=== PATIENT | male | born 1960 | race Caucasian/White ===

== ENCOUNTER → 2023-11-06 13:11 | Outpatient (REF) | payer OTHER, SELFPAY | LOC: HWRAD 13:11 | PROVIDERS: ATTENDING PHYSICIAN Family Medicine | DX: R31.0 Gross hematuria (principal) | CPT/HCPCS: 76770 ==

== ENCOUNTER → 2023-11-14 15:55 | Outpatient (REF) | payer OTHER, SELFPAY | LOC: HWRAD 15:55 | PROVIDERS: ATTENDING PHYSICIAN Urology; FAMILY PHYSICIAN Family Medicine | DX: N20.0 Calculus of kidney (principal); N13.30 Unspecified hydronephrosis | CPT/HCPCS: 74176 ==

== ENCOUNTER → 2023-11-25 15:31 | Outpatient (REF) | payer OTHER, SELFPAY | LOC: HWRAD 15:31 | PROVIDERS: ATTENDING PHYSICIAN Urology; FAMILY PHYSICIAN Family Medicine | DX: N20.1 Calculus of ureter (principal) | CPT/HCPCS: 74018 ==

== ENCOUNTER → 2024-01-01 07:27 | Outpatient (REF) | payer OTHER, SELFPAY | LOC: HWRAD 07:27 | PROVIDERS: ATTENDING PHYSICIAN Urology; FAMILY PHYSICIAN Family Medicine | DX: N20.1 Calculus of ureter (principal) | CPT/HCPCS: 74176 ==

== ENCOUNTER 2024-03-19 06:15 | Day surgery (SDC) | payer OTHER, SELFPAY ==
[2024-03-16 06:48] VITALS: BMI 43.4
[2024-03-16 09:55] LABS: Hemoglobin 12.1 g/dL (13.0-18.0); Mean Corpuscular Hgb 19.7 pg (27.0-31.0); Mean Corpuscular Volume 63.4 fL (80.0-94.0); Platelet Count 165 10^3/uL (130-400); Red Blood Cell Count 6.15 10^6/uL (4.70-6.10); Red Cell Dist. Width 15.9 % (11.5-14.5); White Blood Cell Count 5.7 10^3/uL (4.8-10.8)
[2024-03-16 10:24] LABS: Blood Urea Nitrogen 26 mg/dl (9-20); Calcium 8.7 mg/dl (8.4-10.2); Carbon Dioxide 26 mmol/L (22-30); Chloride 106 mmol/L (98-107); Estimated Creatinine Clearance 64 ml/min; Glucose 119 mg/dl (70-99); Potassium 4.8 mmol/L (3.5-5.1); Sodium 142 mmol/L (135-145); eGFR 47.52
--- NOTE | 2024-03-17 14:58 | PTCARENOTE ---
Abn Creatinine, Dr. Mcnally office notified.
[2024-03-19] VITALS (10 sets, daily range): BP systolic 127–178; BP diastolic 67–97; BMI 43.4
[2024-03-19] MEDS: TYLENOL 1000 MG PO (10:10)
[2024-03-19 10:25] LABS: Glucose - Point of Care 123 mg/dl (70-99)
[2024-03-19] MEDS: NORMOSOL-R 1000 IV (10:26)
--- NOTE | 2024-03-19 11:09 | HP.FOC2 ---
Focused History & Physical
Chief Complaint
HPI:
Chief Complaint: Abnormal imaging of the appendix, suspected mucocele
HPI / Indication for Planned Procedure: Patient is a 63-year-old male who underwent CT imaging in December which identified an incidental fluid-filled dilated appendix up to 1.6 cm with small calcifications. Proximal and mid appendix appear normal in
diameter and configuration. Base of the cecum and terminal ileum unremarkable. These were new changes compared to previous CT imaging in 2019. Previous colonoscopy 2020 normal. He has no associated GI symptoms. Patient presents today for
scheduled appendectomy.
Relevant Past Medical History: Other (HARITHA with CPAP utilization, hypertension, GERD, history of colon polyps, type 2 diabetes, aortic stenosis)
Relevant Social History: Negative
Relevant Family History: Negative
Relevant Past Surgical History: Positive for (Right hip replacement, left knee replacement)
Review of Systems
Review of Pertinent Systems: All Systems Negative
Medication
See Medication form for detailed medications: Yes
Medication List (including Herbals & OTC):
pantoprazole 40 mg tablet,delayed release 40 mg PO BID Gastrointestinal issue 09/23/20
potassium citrate 15 mEq (1,620 mg) tablet,extended release (Urocit-K 15) 15 meq PO BID Supplement 09/23/20
aspirin 81 mg tablet,delayed release 81 mg PO DAILY #30 tabs 09/28/20
metformin 500 mg tablet 500 mg PO BID 03/17/24
metoprolol succinate 25 mg tablet,extended release 24 hr 12.5 mg PO DAILY 03/17/24
nifedipine 30 mg tablet,extended release 24 hr 30 mg PO DAILY 03/17/24
tamsulosin 0.4 mg capsule 0.4 mg PO DAILY 03/17/24
Medications Reviewed: Yes
Allergies and Reactions
Patient has Allergies: No
Noted Allergies and Reactions:
Allergy/AdvReac Type Severity Reaction Status Date / Time
No Known Allergies Allergy Verified 03/19/24 09:41
Pertinent Physical Exam
All Other Systems: Negative
Head/Neck: Normal
Lungs: Normal
Heart: Normal
Abdomen: Normal and Other
Extremities: Normal
Neurological: Normal
Diagnosis / Assessment
63-year-old male presenting for scheduled appendectomy due to abnormal imaging in the appendix and suspected possible mucocele
Plan / Procedure
Laparoscopic appendectomy
Anesthesia/Sedation to be done by Anesthesia Provider: Yes
--- NOTE | 2024-03-19 11:23 | W.SUR.PREOP ---
Pre-Operative Surgical Note
-
I have examined this patient prior to the performance of the scheduled procedure.
The patient's condition is unchanged from the time of the current History and
Physical and the patient is able to undergo the scheduled procedure.
--- NOTE | 2024-03-19 13:02 | W.IMMPOSTOP ---
Addendum entered and electronically signed by Say Mcnally MD 03/19/24 14:43:
#[id number]
Original Note:
Surgical Immed Post Op Note
-
Primary Surgeon: Uli
Assisting Surgeon: Jonathan Hinkle
Pre-op Diagnosis: Abnormal imaging of the appendix
Post-op Diagnosis: Appendiceal mass, suspected mucocele
Procedure Performed: Laparoscopic appendectomy
Anesthesia Type: GETA +0.25% Marcaine
Specimen / Cultures: Appendix
Estimated Blood Loss: 4 mL
Complications: None immediate
Operative Findings: Focal area of distended/dilated appendix in the distal to mid third. No serosal abnormalities. No regional lymphadenopathy appreciated. Proximal appendix and base of the appendix normal. Appendectomy completed without
disruption of the appendix and divided flush with the cecum utilizing a Endo GLADIS 45 franklin stapler.
[2024-03-19 13:19] LABS: Glucose - Point of Care 137 mg/dl (70-99)
== END 2024-03-19 15:01 | disposition home or self-care (01) ==
LOC: SDS 06:15
PROVIDERS: ATTENDING PHYSICIAN Surgery; FAMILY PHYSICIAN Family Medicine
DX: D37.3 Neoplasm of uncertain behavior of appendix (principal); R93.5 Abnormal findings on diagnostic imaging of other abdominal regions, including retroperitoneum
CPT/HCPCS: 44970; 88304; 36415; 80048; 82962; 85027; J1335

== ENCOUNTER 2024-04-09 11:01 | Day surgery (SDC) | payer OTHER, SELFPAY ==
[2024-04-09] VITALS (17 sets, daily range): BP systolic 127–194; BP diastolic 67–116; BMI 44.4
[2024-04-09 11:47] LABS: Glucose - Point of Care 110 mg/dl (70-99)
[2024-04-09] MEDS: LOW STRENGTH ASPIRIN 81 MG PO (11:48)
[2024-04-09] MEDS: NSS 403 ML IV (11:49)
[2024-04-09 15:18] LABS: ACT-LR - POC 210 Seconds (116-155)
--- NOTE | 2024-04-09 15:21 | ITS.CL.CATH ---
Intake Specialist - Catheterization
Cardiac Catheterization
Procedure Report:
CARDIAC CATHETERIZATION REPORT
Date of Procedure: 04/09/2024
Referring: Pineda Lopez DO
Indication: Severe aortic stenosis
�
HEMODYNAMIC DATA
AO: 166/90
LV: 215/20
There is a 46 mmHg gradient across the aortic valve
�
LEFT VENTRICULOGRAPHY: Not performed due to CKD with creatinine 1.6
�
CORONARY ANGIOGRAPHY
Dominance: Right
Left Main: Normal
LAD: Normal
Circumflex: Normal
RCA: Normal
Right lower extremity angiography: The right iliofemoral vessels are large and free of atherosclerotic disease
�
Closure Device: None-manual compression was used to obtain hemostasis in the right femoral artery as he may ultimately be a TAVR patient. Of note, the right radial artery was easily accessed; however, due to the origin of the innominate artery
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
�
Radiation (mGy): 512
DAP (cm2.Gy): 53.4
Fluoroscopy time: 11.9 minutes
�
CONCLUSIONS
1:�Systemic hypertension
2:�Severe aortic stenosis with mean gradient 46 mmHg
3. He will be evaluated for SAVR vs TAVR
�
�
Copy to: Pineda Lopez DO, Roxie Sung,, Yasir NATARAJAN MD
�
Wisam Sánchez MD, [facility], [facility]
[2024-04-09 16:14] LABS: Glucose - Point of Care 93 mg/dl (70-99)
--- NOTE | 2024-04-09 16:53 | CONSULT.STRU ---
Consultation
-
Date/Time Consultation Requested: 04/09/2024
Date/Time Consultation Performed: 04/09/2024
Requesting Provider: Dr. Wisam Sánchez
Performing Provider: MANUEL Teran
Reason for Consultation: Aortic stenosis
Patient History
Physicians
Family Physician: Pineda Faustin
Outpatient Glass Maker: Pineda Lopez
Primary Glass Maker: Pineda Lopez
History of Present Illness
Patient is a 63yo obese male referred to Dr. Sánchez by Dr. Pineda Lopez for evaluation of his aortic stenosis. While preparing for a knee replacement the patient had lost a significant amount of weight and a cardiac murmur was first heard. He
has successfully undergone a left TKR and most recently an appendectomy since then. He does not report any symptoms of KERNS, SOB at rest, CP, palpitations, dizziness or syncope. He does have fatigue but states this is chronic and also admits to some
mild KERNS when walking uphill but relatively unchanged from what he has always experienced. His echocardiogram is notable for LVEF of 65%, Aortic valve with PG/M.2/54.4, KYLE 1.0, mild AI. Mitral valve with mild stenosis MG 6 and mild MR. Cardiac
cath today with no obstructive coronary disease.
Reviewed the pathophysiology of aortic stenosis with the patient and his . Explained the treatment options of SAVR and TAVR. Explained the TAVR evaluation process including follow up BMP, CT TAVR scan, CT surgery consult and Heart Team
discussion. Provided with script for BMP next week, script and appointment for CT TAVR, Consult appointment with Dr. Petersen and contact information. Allowed for and answered questions.
Past Medical History
Past Medical History: Covid-19, GERD, HTN, Hypercholesterolemia, NIDDM, HARITHA (CPAP), Renal Insufficiency, Valvular Disease (Severe , mild AI, Mild mitral stenosis, mild MR, trace TR ) and Other (Colon polyps, mild ascending aorta dilation)
Past Surgical History
Past Surgical History: Appendectomy (Appendiceal mass, suspected mucocele.) and Orthopedic (R-THR, L-TKR)
Dental History
Regular dental care: Dr. Barry Bhakta ([facility])
Family History
Mother: at Age (72yo, HTN)
Father: at Age (82yo)
Social History
Alcohol: Occasional
Drug: None
Tobacco: Non-Smoker
Personal:
Living: With Spouse
Employment: Employed ([employer])
Allergies
Allergy/AdvReac Type Severity Reaction Status Date / Time
lisinopril Allergy Unknown Pharmacy Verified 04/09/24 11:54
to Review
Home Medications
�Medication �Instructions �Recorded �Confirmed �Type
pantoprazole 40 mg tablet,delayed 40 mg PO DAILY Gastrointestinal 09/23/20 04/09/24 History
release issue
potassium citrate 15 mEq (1,620 15 meq PO BID Supplement 09/23/20 04/09/24 History
mg) tablet,extended release
(Urocit-K 15)
aspirin 81 mg tablet,delayed 81 mg PO DAILY #30 tabs 09/28/20 04/09/24 Rx
release
metformin 500 mg tablet 1,000 mg PO BID 03/17/24 04/09/24 History
metoprolol succinate 25 mg 12.5 mg PO DAILY 03/17/24 04/09/24 History
tablet,extended release 24 hr
nifedipine 30 mg tablet,extended 30 mg PO DAILY 03/17/24 04/09/24 History
release 24 hr
tamsulosin 0.4 mg capsule 0.4 mg PO DAILY 03/17/24 04/09/24 History
acetaminophen 500 mg tablet 1,000 mg (2 x 500 mg) PO Q6HPRN 03/19/24 04/09/24 Rx
(Tylenol Extra Strength) PRN mild pain #1 tab
oxycodone 5 mg tablet 5 mg PO Q4HPRN PRN 03/19/24 04/09/24 Rx
breakthrough/severe pain #7 tabs
STS%
STS %: 1.81%
Review of Systems
-
History Source: Patient and Family
General: Reports Fatigue
HEENT: Reports No Symptoms
Respiratory: Reports Other (HARITHA- CPAP)
Cardiac: Reports Edema (chronic jennifer LE); Denies Chest Pain, Known Vascular Disease or Palpitations
Abdomen/GI: Reports Reflux; Denies Nausea or Vomiting
: Reports No Symptoms; Denies Dysuria, Urgency or Frequency
Musculoskeletal: Reports Joint Pain (DJD, history of TKR, THR)
Skin: Reports No Symptoms
Neurological: Reports No Symptoms; Denies CVA, TIA, Headaches or Syncope
Vascular: Reports No Symptoms
Physical Exam
Vital Signs
Temp 98.9 F 04/09/24 11:16
Temp route: Oral 04/09/24 11:07
Pulse 74 04/09/24 16:30
Resp Rate 16 04/09/24 16:30
Blood pressure 164/90 04/09/24 16:30
Blood pressure extremity used: Left upper arm 04/09/24 16:25
Position: Lying 04/09/24 16:25
MAP (cuff-Lissy Monitor) 104 04/09/24 16:30
SaO2 98 04/09/24 16:15
Oxygen Mode of Delivery Room air 04/09/24 16:25
Can the patient verbally communicate their pain? Yes 04/09/24 16:25
Actual Weight 134.263 kg 04/09/24 10:14
Body Mass Index (BMI) 44.4 04/09/24 10:14
Labs
03/16/2024
H/H: 12.1/39.0
WBC: 57
Platelets: [id number]
BUN/Creat: 26/1.6
GFR: 47.52
Diagnostic Studies
Cardiac Catheterization 04/09/2024
HEMODYNAMIC DATA
AO: 166/90
LV: 215/20
There is a 46 mmHg gradient across the aortic valve
�
LEFT VENTRICULOGRAPHY: Not performed due to CKD with creatinine 1.6
�
CORONARY ANGIOGRAPHY
Dominance: Right
Left Main: Normal
LAD: Normal
Circumflex: Normal
RCA: Normal
Right lower extremity angiography: The right iliofemoral vessels are large and free of atherosclerotic disease
�
Closure Device: None-manual compression was used to obtain hemostasis in the right femoral artery as he may ultimately be a TAVR patient. Of note, the right radial artery was easily accessed; however, due to the origin of the innominate artery
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
�
Radiation (mGy): 512
DAP (cm2.Gy): 53.4
Fluoroscopy time: 11.9 minutes
�
CONCLUSIONS
1:�Systemic hypertension
2:�Severe aortic stenosis with mean gradient 46 mmHg
3. He will be evaluated for SAVR vs TAVR
�
�Echocardiogram ([facility])
LVEF 65%
Mitral Valve: MAC, mild stenosis PG/M/6, mild MR
Aortic Valve: trileaflet, severe stenosis, mild AI. PG/M.2/54.4, KYLE 1.0, Peak velocity 4.9m/sec
Pulmonic Valve: mild regurgitation
Tricuspid Valve: Trace TR
Exam
General: Well Developed, No Apparent Distress and Other (obese)
HEENT: Normocephalic, Moist Mucous Membranes and PERRLA
Neck: Trachea Midline
Respiratory: Clear; Negative Wheezes, Crackles or Rhonchi
Cardiac: S1/S2, Regular Rhythm and Murmur (Grade II/ systolic murmur)
GI: Soft, Non Tender and Normal Bowel Sounds
Rectal: Deferred by Provider
Skin: Warm and Dry
Neuro: AO x 3, No Motor Deficits and Nonfocal/Grossly Intact
Extremities: Lower Level Edema (+1 pitting bilateral LE)
Psych: Calm
Assessment / Plan
-
Procedure Type:�Isolated AVR
PERIOPERATIVE OUTCOME ESTIMATE %
Operative Mortality 1.81%
Morbidity & Mortality 11.6%
Stroke 0.719%
Renal Failure 3.5%
Reoperation 3.25%
Prolonged Ventilation 4.79%
Deep Sternal Wound Infection 0.1%
Long Hospital Stay (>14 days) 4.96%
Short Hospital Stay (<6 days)* 45%
Severe Aortic stenosis:
��������������� Continue evaluation for TAVR vs SAVR as an outpatient
��������������� BMP 04/15/2024 at [facility]
��������������� CT TAVR scan chest only 04/21/2024 0930
��������������� CT surgery consult with Dr. Petersen 05/04/2024
��������������� Heart team discussion at [facility]
Dental Clearance
Data Reviewed
-
EKG: Report Reviewed by me
Wastewater Process Engineer: Report Reviewed by me and Discussed with Physician
Echo: Report Reviewed by me and Discussed with Patient
Labs: Labs Reviewed by me
Old Records: Reviewed (Cardiology office notes)
Total Time Spent with Patient (in minutes): 35
[2024-04-09] MEDS: NSS 1000 IV (17:25)
== END 2024-04-09 19:45 | disposition home or self-care (01) ==
LOC: CATH 11:01
PROVIDERS: ATTENDING PHYSICIAN Internal Medicine Cardiovascular Disease; FAMILY PHYSICIAN Family Medicine; OTHER PHYSICIAN Internal Medicine Cardiovascular Disease
DX: I35.0 Nonrheumatic aortic (valve) stenosis (principal); I12.9 Hypertensive chronic kidney disease with stage 1 through stage 4 chronic kidney disease, or unspecified chronic kidney disease; E11.22 Type 2 diabetes mellitus with diabetic chronic kidney disease; N18.9 Chronic kidney disease, unspecified; E66.9 Obesity, unspecified; E78.00 Pure hypercholesterolemia, unspecified; G47.33 Obstructive sleep apnea (adult) (pediatric); K21.9 Gastro-esophageal reflux disease without esophagitis; I37.1 Nonrheumatic pulmonary valve insufficiency; Z79.84 Long term (current) use of oral hypoglycemic drugs; Z68.41 Body mass index [BMI] 40.0-44.9, adult; Z86.16 Personal history of COVID-19; Z82.49 Family history of ischemic heart disease and other diseases of the circulatory system; Z87.19 Personal history of other diseases of the digestive system; Z88.8 Allergy status to other drugs, medicaments and biological substances; Z90.49 Acquired absence of other specified parts of digestive tract; Z96.659 Presence of unspecified artificial knee joint
CPT/HCPCS: 82962; 85347; 93458; C1894

== ENCOUNTER → 2024-04-21 09:55 | Outpatient (REF) | payer OTHER, SELFPAY | LOC: RAD 09:55 | PROVIDERS: ATTENDING PHYSICIAN Nurse Practitioner Adult Health | DX: I35.0 Nonrheumatic aortic (valve) stenosis (principal) | CPT/HCPCS: 75572; Q9967 ==

== ENCOUNTER 2024-04-21 10:20 | Outpatient (RCR) | payer OTHER, SELFPAY ==
[2024-04-21 10:35] VITALS: BP 133/84
[2024-04-21] MEDS: NSS 500 IV (10:52)
== END 2024-05-08 23:59 | disposition home or self-care (01) ==
LOC: OID 10:20
PROVIDERS: ATTENDING PHYSICIAN Nurse Practitioner Adult Health; FAMILY PHYSICIAN Family Medicine
DX: I35.0 Nonrheumatic aortic (valve) stenosis (principal)
CPT/HCPCS: 96360; 96361

== ENCOUNTER 2024-05-24 05:12 | Inpatient (IN) | payer OTHER, SELFPAY ==
[2024-05-13 12:48] VITALS: BMI 44.4
[2024-05-13 13:17] LABS: INR 1.04; PT 13.6 Sec (11.4-14.6)
[2024-05-13 13:18] LABS: APTT 31.4 Sec (23.4-35.0)
[2024-05-13 13:21] LABS: ALT (SGPT) 13 U/L (0-50); AST (SGOT) 18 U/L (17-59); Albumin 4.3 g/dl (3.5-5.0); Alkaline Phosphatase 89 U/L (38-126); Blood Urea Nitrogen 28 mg/dl (9-20); Calcium 8.9 mg/dl (8.4-10.2); Carbon Dioxide 23 mmol/L (22-30); Chloride 105 mmol/L (98-107); Direct Bilirubin 0.3 mg/dl (0.0-0.4); Estimated Creatinine Clearance 72 ml/min; Glucose 106 mg/dl (70-99); Potassium 4.3 mmol/L (3.5-5.1); Sodium 141 mmol/L (135-145); Total Bilirubin 0.9 mg/dl (0.2-1.3); eGFR 55.78
[2024-05-13 13:41] LABS: % Basophils 0.6 % (0-2); % Eosinophils 4.5 % (0-6); % Immature Granulocytes 0.5 % (0-0.5); % Lymphocytes 18.1 % (20.5-51.1); % Monocytes 8.6 % (1.7-9.3); % Neutrophils 67.7 % (42.2-75.2); Absolute Eosinophils 0.3 10^3/uL (0-0.7); Absolute Lymphocytes 1.1 10^3/uL (1.2-3.4); Absolute Monocytes 0.5 10^3/uL (0.1-0.6); Absolute Neutrophils 4.2 10^3/uL (1.4-6.5); Hematocrit 41.9 % (39.0-52.0); Hemoglobin 12.7 g/dL (13.0-18.0); Mean Corp Hgb Conc. 30.3 g/dL (33.0-37.0); Mean Corpuscular Hgb 19.4 pg (27.0-31.0); Mean Corpuscular Volume 63.9 fL (80.0-94.0); Nucleated Red Blood Cells % 0 % (-); Platelet Count 159 10^3/uL (130-400); Red Blood Cell Count 6.56 10^6/uL (4.70-6.10); Red Cell Dist. Width 16.1 % (11.5-14.5); White Blood Cell Count 6.2 10^3/uL (4.8-10.8)
[2024-05-13 14:19] LABS: Urine Albumin Negative (Neg - Trace); Urine Bilirubin Negative (Negative); Urine Character Clear (Clear); Urine Color Yellow; Urine Glucose Negative (Negative); Urine Ketone Negative (Negative); Urine Leukocyte Trace (Negative); Urine Nitrite Negative (Negative); Urine Occult Blood 1+ (Negative); Urine Urobilinogen Negative (Neg - 1+)
--- NOTE | 2024-05-13 14:20 | CM ---
Reviewed chart. Met with Mr. Nobles in [facility]'s. He states prior to admission he resides with his spouse in a two story home with two steps to enter. He states he has a first floor set-up, his main suite is on the first floor. He states prior to
admission he was independent with ambulation and adls. He states he has a CPAP Machine at home and no other DME. He states he has a prescription plan. He states his spouse will be one one to two days when he goes home to assist in his care if
needed. The discharge plan is to return home with his spouse and a home visit by the Cardiothoracic Transitional Care Nurse when medically stable.
We reviewed pre-op and post-op routines. We reviewed the shower instructions. He has the soap, written instructions and the Cardiothoracic Surgery Educational Booklet. We also reviewed restrictions including sternal precautions and driving
restrictions. We discussed a home visit by the Cardiothoracic Transitional Care Nurse. He is agreeable to a home visit. The plan is for AVR on Friday, May 24, 2024.
[2024-05-13 14:55] LABS: Urine Red Blood Cell 0-2 /HPF (0-2); Urine White Cell 0-2 /HPF (0-5)
[2024-05-14 09:28] LABS: Glycohemoglobin (HgbA1c) 6.3 % (4.0-5.6)
--- NOTE | 2024-05-23 23:28 | W.PN.CT ---
Assessment / Plan
-
Assessment:
-S/P #27 Inspiris Resilia valve placed & secured w/ 15 interrupted, pledgetted valve sutures & CorKnots/AV annulus debrided circumferentially including debridement of aortomitral curtain/ventricular surface of anterior MV leaflet, by Nicola,
05/24/24, pod#1
-Severe
-Mild asc. aorta dilatation (4.2 cm)
-KERNS
-LVEF 60% preop, 65% postop per intraop MARYANN
-Mild AI/MR
-Moderate posterior MAC
-Severe dilated left atrium
-Mild scattered sessile atheroma seen in the descending aorta and distal arch
-HTN
-T2DM (A1C 6.3)
-Class 3 obesity (BMI 44.3)
-HARITHA (uses CPAP)
-GERD/hiatal hernia
-DJD
-Mild right scoliosis
-Renal calculi
-Recent TEVIN, 05/13/24
-BPH (on Flomax)
-Colon polyps
-Appendiceal mass/mucocele S/P Lap Appendectomy (03/19/24)
-S/p L TKA (2022)
-S/P R hip replacement (2021)
-S/p Tonsillectomy
-Acute postop blood loss/Anemia (stable without blood transfusion)
-Acute postop atelectasis
-Acute postop hypovolemia with subsequent hypervolemia
Plan:
-No major issues overnight. Hemodynamically and neurologically intact
-Successfully extubated on 05/24/24 @ 1640
-Weaned of Levophed gtt, remains on insulin gtt per protocol
-Last CI 2.98, U/O since OR
-Monitor chest tube output: 2 meds
-Cont. current meds (ASA, Amiodarone, Lopressor, Flomax)
-Will transition off insulin gtt tomorrow since pt is a diabetic
-Telemetry phase once of insulin gtt
-D/C'd swan yesterday @ 2144
-D/C'd a-line this AM @ 0500
-Keep amaya another day to avoid issues with acute urinary retention, pt had TEVIN preop has BPH and is on Flomax
-Maintain temporary PW (will cut before d/c home)
-Maintain cordis (will d/c on POD#3)
-Wean off of O2 as tolerated
-Encourage use of IS
-OOB into chair/Ambulate
Subjective
-
Date of Service: May 23, 2024
Objective Data
-
Lab Results
05/13/24 12:41
05/13/24 12:41
PT 13.6 Sec (11.4-14.6) 05/13/24 12:37
INR 1.04 05/13/24 12:37
APTT 31.4 Sec (23.4-35.0) 05/13/24 12:37
[2024-05-24] VITALS (21 sets, daily range): BP systolic 88–147; BP diastolic 55–88; BMI 43.4
[2024-05-24 06:40] LABS: Blood Urea Nitrogen 25 mg/dl (9-20); Calcium 8.4 mg/dl (8.4-10.2); Carbon Dioxide 24 mmol/L (22-30); Chloride 107 mmol/L (98-107); Estimated Creatinine Clearance 78 ml/min; Glucose 125 mg/dl (70-99); Magnesium 1.8 mg/dl (1.6-2.3); Potassium 3.9 mmol/L (3.5-5.1); Sodium 141 mmol/L (135-145); eGFR > 60.00
[2024-05-24] MEDS: BACTROBAN 2% OINTMENT 1 APPLIC NASAL ×2 (07:02→19:52)
[2024-05-24] MEDS: PROTONIX 40 MG PO (07:05)
[2024-05-24] MEDS: LOPRESSOR 25 MG PO (07:05)
[2024-05-24] MEDS: MAGNESIUM OXIDE 500 MG PO (07:06)
--- NOTE | 2024-05-24 07:16 | PTCARENOTE ---
Pt admitted to CVICU at 0530. Pt clipped and prepped, CHG bath done, all per CVOR protocol. Pre op meds given. Dr. Petersen in to see pt this am. Family at bedside. Pt to CVOR at ~ 0700.
--- NOTE | 2024-05-24 07:45 | W.CVOR.SURPR ---
CVOR Surgeon Immed Pre Op
-
I have examined this patient prior to performance of the scheduled procedure.
The patient's condition is unchanged from the time of the dictated/written History and
Physical and the patient is able to undergo the scheduled procedure.
[2024-05-24 08:15] LABS: Urine Albumin Negative (Neg - Trace); Urine Bilirubin Negative (Negative); Urine Character Clear (Clear); Urine Color Yellow; Urine Glucose Negative (Negative); Urine Ketone Negative (Negative); Urine Leukocyte Negative (Negative); Urine Nitrite Negative (Negative); Urine Occult Blood Negative (Negative); Urine Specific Gravity 1.015 (<1.030); Urine Urobilinogen Negative (Neg - 1+)
[2024-05-24 08:25] LABS: ACT+ - POC 93 Seconds (82-134)
[2024-05-24 09:40] LABS: ACT+ - POC 558 Seconds (82-134)
[2024-05-24 10:05] LABS: B.E. - POC 0.3 mmol/L; Glucose - POC 126 mg/dl (70-99); HCO3 - POC 25 mmol/L (21-29); Hematocrit - POC 33 % PCV (42-52); Hemodilution- POC No; Hemoglobin Calculated - POC 11.3; Ionized Calcium - POC 1.15 mmol/L (1.12-1.27); O2 Saturation %Calculated-POC 99.1 5 (92-96); PCO2 - POC 38 mmHg (35-45); PO2 - POC 136 mmHg (80-100); POC Comment PRE; Potassium - POC 3.9 mmol/L (3.6-5.0); Sodium - POC 142 mmol/L (135-145); pH - POC 7.42 (7.35-7.45)
[2024-05-24 10:13] LABS: ACT+ - POC 459 Seconds (82-134)
[2024-05-24 10:30] LABS: B.E. - POC 2.2 mmol/L; Glucose - POC 175 mg/dl (70-99); HCO3 - POC 27 mmol/L (21-29); Hematocrit - POC 27 % PCV (42-52); Hemodilution- POC Yes; Ionized Calcium - POC 0.98 mmol/L (1.12-1.27); O2 Saturation %Calculated-POC 99.9 5 (92-96); PCO2 - POC 44 mmHg (35-45); PO2 - POC 359 mmHg (80-100); POC Comment CPB; Potassium - POC 5.2 mmol/L (3.6-5.0); Sodium - POC 138 mmol/L (135-145)
[2024-05-24 10:39] LABS: ACT+ - POC 473 Seconds (82-134)
[2024-05-24 11:00] LABS: ACT+ - POC 555 Seconds (82-134)
[2024-05-24 11:02] LABS: B.E. - POC 1.5 mmol/L; Glucose - POC 185 mg/dl (70-99); HCO3 - POC 26 mmol/L (21-29); Hematocrit - POC 28 % PCV (42-52); Hemodilution- POC Yes; Hemoglobin Calculated - POC 9.6; Ionized Calcium - POC 0.99 mmol/L (1.12-1.27); O2 Saturation %Calculated-POC 99.9 5 (92-96); PCO2 - POC 42 mmHg (35-45); PO2 - POC 254 mmHg (80-100); POC Comment CPB; Potassium - POC 4.6 mmol/L (3.6-5.0); Sodium - POC 139 mmol/L (135-145); pH - POC 7.41 (7.35-7.45)
[2024-05-24 11:29] LABS: ACT+ - POC 530 Seconds (82-134)
[2024-05-24 11:32] LABS: B.E. - POC 0.9 mmol/L; Glucose - POC 194 mg/dl (70-99); HCO3 - POC 25 mmol/L (21-29); Hematocrit - POC 32 % PCV (42-52); Hemodilution- POC Yes; Hemoglobin Calculated - POC 10.8; Ionized Calcium - POC 1.02 mmol/L (1.12-1.27); O2 Saturation %Calculated-POC 99.8 5 (92-96); PCO2 - POC 36 mmHg (35-45); PO2 - POC 220 mmHg (80-100); POC Comment CPB; Potassium - POC 4.4 mmol/L (3.6-5.0); Sodium - POC 140 mmol/L (135-145); pH - POC 7.45 (7.35-7.45)
--- NOTE | 2024-05-24 11:38 | CM ---
Chart reviewed. Patient is in the OR today. Patient is independent of ADLS, lives with his in a 2 STH, 1st floor set up, 2 ATBBY, 0 DME. Plan is for the patient to return home with CT Transitional RN. CM to follow
[2024-05-24 12:10] LABS: B.E. - POC 0.4 mmol/L; Glucose - POC 222 mg/dl (70-99); HCO3 - POC 26 mmol/L (21-29); Hematocrit - POC 33 % PCV (42-52); Hemodilution- POC Yes; Hemoglobin Calculated - POC 11.1; Ionized Calcium - POC 1.01 mmol/L (1.12-1.27); O2 Saturation %Calculated-POC 99.8 5 (92-96); PCO2 - POC 44 mmHg (35-45); PO2 - POC 233 mmHg (80-100); POC Comment WARM; Potassium - POC 4.6 mmol/L (3.6-5.0); Sodium - POC 141 mmol/L (135-145); pH - POC 7.38 (7.35-7.45)
[2024-05-24 12:18] LABS: ACT+ - POC 96 Seconds (82-134)
[2024-05-24 12:21] LABS: Glucose - POC 151 mg/dl (70-99); HCO3 - POC 22 mmol/L (21-29); Hematocrit - POC 33 % PCV (42-52); Hemodilution- POC Yes; Hemoglobin Calculated - POC 11.1; Ionized Calcium - POC 1.16 mmol/L (1.12-1.27); O2 Saturation %Calculated-POC 97.8 5 (92-96); PCO2 - POC 39 mmHg (35-45); PO2 - POC 104 mmHg (80-100); POC Comment POST; Potassium - POC 3.6 mmol/L (3.6-5.0); Sodium - POC 144 mmol/L (135-145); pH - POC 7.37 (7.35-7.45)
--- NOTE | 2024-05-24 12:40 | W.PN.CD ---
Addendum entered and electronically signed by Jake Etienne MD 05/24/24 17:38:
63 yo male with PMH severe , HTN, DM, hyperlipidemia admitted following bio-AVR today. He has been extubated. He is weaning from sedation and drips. Exam with RRR, no murmurs, trace edema. Tele and EKG: NSR.
Post op care per CT surgery.
Assess to resume home BP meds as he recovers from OR.
Original Note:
Today's Communication / Plan
-
Follow telemetry
Impression / Plan
-
BACKGROUND: 63M with HTN, NIDDM, HARITHA, and severe aortic stenosis who presents for SAVR
Third Hand: Dr. Lopez
Severe aortic stenosis S/P #[address] Petersen on 05/24/2024
-Pre LVEF 60% without WMA, unchanged post
-MARYANN 18/9mmHg post without AI
-EKG low voltage with prolonged QT, EKG in am
-Education regarding antibiotic prophylaxis for dental and invasive procedures when he is awake
HTN
NIDDM, Hgba1c 6.3%, per primary
HARITHA
Obesity, BMI 43
SUBJECTIVE:
Intubated and sedated on mechanical ventilation
Physical Exam
Vital Signs/Labs
Vital Signs
Temp Pulse Resp BP Pulse Ox
98.8 F 79 16 147/77 97
05/24/24 05:34 05/24/24 05:34 05/24/24 05:34 05/24/24 05:36 05/24/24 05:34
05/23/24 05/24/24 05/25/24
06:59 06:59 06:59
Actual Weight 133.1 kg
PT 13.6 Sec (11.4-14.6) 05/13/24 12:37
INR 1.04 05/13/24 12:37
APTT 31.4 Sec (23.4-35.0) 05/13/24 12:37
Magnesium 1.8 mg/dl (1.6-2.3) 05/24/24 06:04
Physical Exam
Constitutional: No acute distress and Comfortable
EENT: Anicteric and Moist mucous membranes
Cardiovascular: Rhythm & rate is regular, S1S2 is normal and Rub present
Respiratory: Lungs clear to auscul. (diminished) and Other (mechanical ventilation)
GI: Soft, Distention absent, Flat, Non tender and Normal bowel sounds
Neuro/Psych: Other (sedated)
Other: Skin (warm and dry)
Data Reviewed
-
Date of Service: May 24, 2024
EKG: Report Reviewed by me
Labs: Labs Reviewed by me
Old Records: Reviewed
--- NOTE | 2024-05-24 12:54 | W.IMMPOSTOP ---
Addendum entered and electronically signed by Yasir Petersen MD 05/24/24 15:47:
[id number]
Original Note:
Surgical Immed Post Op Note
-
CARDIAC SURGERY OPERATIVE NOTE:
Preoperative Dx:
Severe aortic stenosis
Postoperative Dx:
Same
Procedures:
1) Median sternotomy
2) AVR (#27 Inspiris Resilia)
Surgeon:
Yasir Petersen M.D.
Assistants:
Radha Abraham P.A.-C.; processing assistant throughout
Morena Muñoz P.A.-C.; [id number] closure
Anesthesia:
Cornelius Faust M.D.
Perfusion:
Marcello Carlisle C.C.P.; XC: 95min, CPB: 126min
Findings:
Profoundly calcified trileaflet aortic valve w/ dense leaflet calcifications extending to the annulus circumferentially. Leaflet calcifications were most pronounced on the NCC. Annular calcifications were most pronounced along the LCC w/ with a
wide bar of calcifications extending onto the aortomitral curtain and down the anterior leaflet of the MV. Progressing towards to LCC/RCC commissure; there was another wide bar of annular calcifications congruent with MAC.
AV annulus debrided circumferentially including debridement of aortomitral curtain/ventricular surface of anterior MV leaflet.
#27 Inspiris Resilia valve placed & secured w/ 15 interrupted, pledgetted valve sutures & CorKnots
Post-MARYANN: LVEF 65% w/o RWMA, well-seated AVR w/o PVL/AI, mean gradient 8mmHg (LVOT), mild MR (unchanged)
Implants:
Inspiris Resilia AVR; 27mm; SN [id number]
Epicardial V-wires x 2
CT x 2 (inferior mediastinal; superior mediastinal)
Sternal wires x 7
Sternal 'X' plate w/ 4 - 16mm and 4 - 18mm screws
Sternal 'Square' plate w/ 4 - 14mm screws
Complications:
None
Transfusions:
None
Condition:
109 sinus w/ slightly widened QRS, isoelectric STs; 94/53. 35/23. CVP 16. CO/CI: 5/2.34. 98%
GTTS: precedex 0.5, insulin 1, levophed 2 (just restarted)
Stable/guarded to CVICU
--- NOTE | 2024-05-24 13:32 | CON.INTV ---
Consultation
Consultation Request
Date/Time Consultation Requested: 05/24/2024-1:30 PM
Date/Time Consultation Performed: 05/24/2024-1:30 PM
Requesting Provider: Cardiovascular surgery
Performing Provider: Dr. Adam
Reason for Consultation: Postop ventilator/critical care management
Medical History
-
Chief Complaint: Aortic stenosis
History of Present Illness:
63-year-old male with a history of obesity, diabetes, hypertension, HARITHA, nephrolithiasis, and CAD who was noted to have significant aortic stenosis and underwent AVR-well point pumping supervisor consulted for postoperative ventilator/critical care management
05/24/2024. Patient is seen postoperatively in the cardiovascular intensive care unit and he is sedated on a ventilator and review of systems was unobtainable. Operative records were reviewed. No blood products were needed. Overall uneventful.
No blood products. Pressors and inotropes reviewed.
Past Medical History
Past Medical History: None (Hypertension. Hyperlipidemia. CAD-nonobstructive. Obesity. HARITHA. Diabetes. GERD. Colon polyp. Chronic pain. Nephrolithiasis. Renal insufficiency. 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
Right THR 2021. Left TKA 2022. Tonsillectomy.)
Social History
Tobacco: Non-smoker
Alcohol: Occasional
Drug: None
Personal:
Living: With Family
Occupational Exposures: No known asbestos exposure
Environmental Exposures: No known tuberculosis exposure
Family History
Family History: Other (Father-hypertension, hyperlipidemia. Mother-hypertension. Maternal aunt-colon cancer. Sister-breast cancer. Son-diabetes)
Allergies / Home Medications
Allergies
Allergy/AdvReac Type Severity Reaction Status Date / Time
lisinopril Allergy Unknown Pharmacy Verified 05/24/24 02:40
to Review
Home Medications
�Medication �Instructions �Recorded �Confirmed �Last Taken �Type
pantoprazole 40 mg tablet,delayed 40 mg PO DAILY Gastrointestinal 09/23/20 05/24/24 05/23/24 21:30 History
release issue
potassium citrate 15 mEq (1,620 15 meq PO BID Supplement 09/23/20 05/24/24 05/23/24 17:30 History
mg) tablet,extended release
(Urocit-K 15)
aspirin 81 mg tablet,delayed 81 mg PO DAILY #30 tabs 09/28/20 05/24/24 05/23/24 21:30 Rx
release
metformin 500 mg tablet 500 mg PO BID 03/17/24 05/24/24 05/23/24 17:30 History
metoprolol succinate 25 mg 12.5 mg PO DAILY 03/17/24 05/24/24 05/22/24 21:30 History
tablet,extended release 24 hr
nifedipine 30 mg tablet,extended 30 mg PO DAILY 03/17/24 05/24/24 05/21/24 06:30 History
release 24 hr
tamsulosin 0.4 mg capsule 0.4 mg PO DAILY 03/17/24 05/24/24 05/23/24 17:30 History
acetaminophen 500 mg tablet 1,000 mg (2 x 500 mg) PO Q6HPRN 03/19/24 05/24/24 Unknown Rx
(Tylenol Extra Strength) PRN mild pain #1 tab
oxycodone 5 mg tablet 5 mg PO Q4HPRN PRN 03/19/24 05/24/24 Unknown Rx
breakthrough/severe pain #7 tabs
Review of Systems
-
Unable to Obtain full review of systems at this time due to: Other (Per HPI)
Vitals / Labs / Diagnostic Testing
Vital Signs
Temp Pulse Resp BP Pulse Ox
98.8 F 79 16 147/77 97
05/24/24 05:34 05/24/24 05:34 05/24/24 05:34 05/24/24 05:36 05/24/24 05:34
Diagnostic Testing:
Physical Exam
-
Exam:
Well-nourished and well-developed in no apparent distress
HEENT-atraumatic, normocephalic, oral tracheal intubation
Heart-regular rate and rhythm-no murmurs, rubs or gallops
Chest-clear to auscultation, no wheezes, crackles, median sternotomy bandage is not removed
Abdomen soft nondistended
Extremities-no cyanosis, clubbing, edema and good peripheral pulses
Integument-intact, no rashes, lesions or ecchymosis
Neurologically not alert, not oriented, not moving any of his extremities sedated on a ventilator
Assessment
-
63-year-old male with a history of obesity, diabetes, hypertension, HARITHA, nephrolithiasis, and CAD who was noted to have significant aortic stenosis and underwent AVR-well point pumping supervisor consulted for postoperative ventilator/critical care management
05/24/2024.
Aortic stenosis status post AVR-05/24/2024-Dr. Petersen
Mild anemia-hemoglobin 12.2-ijjucmjowt-NAA 63.9
Mild hyperglycemia
Conditions present prior to admission:
Hypertension.
Hyperlipidemia.
CAD-nonobstructive.
Obesity.
HARITHA-moderate to eeircr-LEI-26.1
Diabetes.
GERD.
Colon polyp.
Chronic pain.
Nephrolithiasis.
Renal insufficiency.
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
Right THR 2021. Left TKA 2022. Tonsillectomy.
Plan
Ventilator settings reviewed
FiO2 will be weaned
Minute ventilation will be adjusted
Arterial blood gases will be monitored
Spontaneous breathing trial will be attempted with hopeful extubation after anesthesia/sedation wear off
Pulmonary artery catheter parameters will be followed
Pressors/antihypertensive/inotropes/diuretics will be provided as needed
Monitor chest tube output
Monitor hemoglobin
Monitor platelet count and coags
Transfuse blood product if needed
CT surgery following chest tubes
Monitor blood sugar
Insulin drip per protocol
Aspiration precautions
VAP prevention protocol
DVT prophylaxis
Early nutrition
Early mobilization
Last seen by Dr. Alberts 12/15/20-we will recommend outpatient sleep disorders follow-up for yearly CPAP compliance/adjustments as needed
Critical care statement: A total of 46 minutes of critical care time was provided for this patient today. This includes management of ventilator, spontaneous breathing trial, arterial blood gases, pressors, of unstable vital signs, evaluation of the
patient at bedside, reviewing the patient's pertinent medical records including radiographs, microbiology, laboratory evaluations, and discussion with primary team and critical care nursing.
Diagnostic data:
Chest x-ray 12/08/2020-improved bibasilar opacifications
Chest x-ray 05/24/2024-mild pulmonary edema, partial obscuration of left hemidiaphragm may represent left lower lobe pneumonia versus small left pleural effusion
PFT/05/29-FEV1 3.06-90%, FVC 4.07-90%, TLC 83%, RV 69%, DLCO 96%, DLCO/VA 113%
Spirometry 05/13/2024-FEV1 2.8-86%, FVC 3.9-92%
HST 11/09/2020-BEVERLY-28.1
Data Reviewed
-
PFT: Report reviewed by me
EKG: Report reviewed by me
Radiology: Image personally visualized and interpreted and Report reviewed by me
Medical Tests (Nuc Med, Echo etc): Report reviewed by me
Labs: Labs reviewed by me
Old Records: Reviewed
Critical Care Time (in minutes): 46
[2024-05-24 13:40] LABS: Glucose - Point of Care 137 mg/dl (70-99)
[2024-05-24 13:49] LABS: B.E. -1.6 mmol/L; HCO3 24.3 mmol/L (21-28); Ionized Calcium 1.13 mMOL/L (1.15-1.33); PCO2 45 mmHg (35-48); PO2 148 mmHg (83-108); Potassium 4.3 mMOL/L (3.5-5.1); Sodium 137 mMOL/L (136-145); pH 7.34 (7.35-7.45)
[2024-05-24 13:53] LABS: Mixed Venous O2 Saturation 74.1 %
[2024-05-24 13:56] LABS: Hematocrit 31.5 % (39.0-52.0); Hemoglobin 9.8 g/dL (13.0-18.0); Platelet Count 138 10^3/uL (130-400)
[2024-05-24 14:01] LABS: Blood Urea Nitrogen 23 mg/dl (9-20); Estimated Creatinine Clearance 71 ml/min; Glucose 132 mg/dl (70-99); Magnesium 2.7 mg/dl (1.6-2.3)
[2024-05-24 14:06] LABS: APTT 31.6 Sec (23.4-35.0); PT 16.9 Sec (11.4-14.6)
--- NOTE | 2024-05-24 14:07 | W.PN.UPDATE ---
Update Note
Progress Note Update
63-year-old male presents electively on 05/[address] a S[address]R with Dr. Petersen.
IV fluids: 2000
U.O.:� 750
UF:� 3650
Blood:� None
Wires:� V
Inotropes: none�
Pressors:� none
Sedatives:� precedex
�
NEURO: sedated on precedex, pupils +2mm B/L
RESP: #8OT @24cm> 12/500/100/5 Lungs clear B/L. 2 mediastinal (25cc on arrival with +1 AL) chest tubes to -20cm suction. Sanguineous drainage
CV: RRR +S1, S2, no S3, no�rub, no murmur. Dermabond to median sternotomy. RIJ w/[place] locked @ 49cm. PA 46/33; CVP 20; CI 2.1
ABD: round, soft, no BS
EXT: no edema, +2/4 DP pulses B/L, no femoral bruit, Left radial
: Garcia with clear yellow urine
�
A/P: POD #0 s/p #27 inspirus SAVR
MARYANN: EF�65%
- wean and extubate; likey to bipap
- will need instruction regarding antibiotic prophylaxis for dental and invasive procedures
- Monitor CT and urine output
- Follow up labs and CXR
- Will start ASA tonight
- EKG pending and will send to cards
- Cards consulted
�
# acute surgical blood loss anemia-expected
- trend CBC
�
# T2DM (A1C 6.3)
- insulin infusion x 48h
- resume metformin
�
[2024-05-24] MEDS: DILAUDID 0.5 MG IV ×2 (14:10→22:29)
[2024-05-24 14:14] LABS: Glucose - Point of Care 156 mg/dl (70-99)
[2024-05-24] MEDS: TYLENOL PO (14:14)
[2024-05-24] MEDS: NSS 500 IV (14:14)
[2024-05-24] MEDS: NOVOLOG FLEXPEN SC ×2 (14:14→16:25)
[2024-05-24] MEDS: ANCEF 15 MG IV (14:15)
[2024-05-24] MEDS: ANCEF 10 IV (14:15)
[2024-05-24] MEDS: NEURONTIN PO ×2 (14:15→16:18)
--- NOTE | 2024-05-24 14:19 | PTCARENOTE ---
Pt received from [facility] at 1330; Sedated and intubated; NSR rhythm on monitor; VSS; Epicardial V-wire preesent with pacemaker turned off; DP and radial pulses present; Lungs diminished; ETT size 8 positioned and secured at 24 cm center lip; Ventilator
settings SIMV 500/12/5/7 FiO2 60%; CTx2 to -20 cm wall suction draining bloody drainage and has +1 air leak - no tidaling, or crepitus noted; Hypoactive BS; Garcia catheter in place draining clear, yellow urine; Sternal Midline Incision covered with
aquacell dressing with scant amount of drainage; +1 B/L LE Edema present; A-line in left radial artery, [place] floated to 47 cm in right Cordis - all lines zeroed and level; PIVx1 #18 R Hand; Levo/insulin/precedex/nicardipine infusing - see nursing
flowsheets for further details; PRN IV Dilaudid given accordingly for pain; iCal repleted x1; See nursing documentation for further details.
CO: 5.81
CI: 2.39
SVR: 881
[2024-05-24] MEDS: DILAUDID 0.25 MG IV (14:31)
[2024-05-24] MEDS: CALCIUM CHLORIDE 10% SYRINGE 50 ML IV (14:35)
[2024-05-24] MEDS: CALCIUM CHLORIDE 10% SYRINGE 50 MG IV (14:35)
--- NOTE | 2024-05-24 14:38 | PTCARENOTE ---
Pt placed on CPAP trial at 1400 by BIANKA Nova Pt trying to extubate himself and given PRN IV Dilaudid accordingly. ABG's sent at 1430
[2024-05-24 14:40] LABS: B.E. -2.2 mmol/L; HCO3 22.4 mmol/L (21-28); O2 Saturation % 97.2 % (94-98); PCO2 37 mmHg (35-48); PO2 76 mmHg (83-108); pH 7.39 (7.35-7.45)
[2024-05-24 15:00] LABS: Glucose - Point of Care 156 mg/dl (70-99)
--- NOTE | 2024-05-24 15:39 | PTCARENOTE ---
Patientt extubated at 1520 by RT at bedside; Placed on 6L O2 NC - SpO2 86-91%; Patient then additionally placed on patient's own CPAP from home with home preset settings - SpO2 93-94%.
[2024-05-24 16:04] LABS: Glucose - Point of Care 120 mg/dl (70-99)
[2024-05-24] MEDS: ZOFRAN 4 MG IV (16:09)
[2024-05-24] MEDS: PACERONE PO (16:18)
--- NOTE | 2024-05-24 16:31 | PTCARENOTE ---
Pt with episode of nausea at 1608 - PRN IV Zofran given; Pt now resting comfortably in bed
[2024-05-24 17:03] LABS: Glucose - Point of Care 138 mg/dl (70-99)
[2024-05-24] MEDS: LOW STRENGTH ASPIRIN 81 MG PO (17:28)
[2024-05-24 17:32] LABS: Platelet Count 145 10^3/uL (130-400)
[2024-05-24 18:00] LABS: Glucose - Point of Care 137 mg/dl (70-99)
[2024-05-24] MEDS: SENOKOT-S 1 TABLET PO (19:51)
[2024-05-24] MEDS: ANCEF 5 IV (19:51)
[2024-05-24 20:05] LABS: Glucose - Point of Care 137 mg/dl (70-99)
[2024-05-24] MEDS: CALCIUM CHLORIDE 10% SYRINGE 60 MG IV (20:31)
[2024-05-24 22:23] LABS: Glucose - Point of Care 121 mg/dl (70-99)
[2024-05-24] MEDS: NEURONTIN 100 MG PO (22:29)
[2024-05-24] MEDS: TYLENOL 1000 MG PO (22:29)
[2024-05-24] MEDS: PACERONE 200 MG PO (22:29)
--- NOTE | 2024-05-24 22:51 | PTCARENOTE ---
[place]-Adolfo catheter removed at 2200 as per [facility] Ed orders; Cordis with KVO infusing - dressing changed; iCal repleted ordered and given prior to [place]-Adolfo catheter removal. PRN IV Dilaudid given accordingly for 7-8/10 pressure pain near sternal
incision.
[2024-05-24 23:02] LABS: Glucose - Point of Care 141 mg/dl (70-99)
--- NOTE | 2024-05-24 23:27 | PTCARENOTE ---
Patient received from previous shift resting in bed, AAO X 3, states pain relief from recent medication. at bedside. NSR via cm, SaO2 @ 91% on RA, 2lnc applied w/SaO2 @ 95%. RIJ Cordis w/kvo infusing. L radial arterial line - leveled, flushed,
and calibrated w/good waveform returned. Epicardial V-wire to box, off. Mediastinal chest tubes x 2, Y-connected, to -20cm suction, no air leak noted. Garcia catheter to gravity. All procedural sites stable. Patient and spouse updated to plan of care
for the night, in agreement. See work list for full assessment and interventions performed.
[2024-05-25] VITALS (27 sets, daily range): BP systolic 84–134; BP diastolic 48–72; PULSE 82; O2SAT 95–99; BMI 43.0
[2024-05-25 00:08] LABS: Glucose - Point of Care 128 mg/dl (70-99)
[2024-05-25] MEDS: FLEXERIL 5 MG PO ×2 (00:08→09:58)
[2024-05-25 01:06] LABS: Glucose - Point of Care 115 mg/dl (70-99)
[2024-05-25 02:07] LABS: Glucose - Point of Care 109 mg/dl (70-99)
--- NOTE | 2024-05-25 03:23 | W.PN.CT ---
Addendum entered and electronically signed by Yasir Petersen MD 05/25/24 06:55:
I saw and examined the patient.
The PA's note was reviewed and I agree with the note.
Comment:
Doing well postop day #1 status post aortic valve replacement with #27 Inspiris
[place] DC'd at 2145 hrs., DC A-line
Maintain Amaya given preop TEVIN/BPH with a.m. creatinine of 1.7, closely follow urine output
Maintain chest tubes
Out of bed, I-S, ambulate later
Original Note:
Today's Communication / Plan
-
Plan:
-No major issues overnight. Hemodynamically and neurologically intact
-Successfully extubated on 05/24/24 @ 1640
-Weaned of Levophed gtt, remains on insulin gtt per protocol
-Postop EKG c/w acute pericarditis, will avoid NSAIDs given cr 1.7 and discuss renal dose Colchicine
-Last CI 2.98, U/O since OR
-Monitor chest tube output: 2 meds
-Cont. current meds (ASA, Amiodarone, Lopressor- hold AM dose given soft BP, Flomax)
-Will transition off insulin gtt tomorrow since pt is a diabetic
-Telemetry phase once of insulin gtt
-D/C'd swan yesterday @ 2145
-Will D/C a-line this AM @ 0600
-Keep amaya another day to avoid issues with acute urinary retention, pt had TEVIN preop has BPH and is on Flomax. Cr this AM is 1.7
-Holding mag oxide given mg of 2.4 today
-Will replete ca++
-Maintain temporary PW (will cut before d/c home)
-Maintain cordis (will d/c on POD#3)
-Wean off of O2 as tolerated
-Encourage use of IS
-OOB into chair/Ambulate
Assessment / Plan
-
Assessment:
-S/P #27 Inspiris Resilia valve placed & secured w/ 15 interrupted, pledgetted valve sutures & CorKnots/AV annulus debrided circumferentially including debridement of aortomitral curtain/ventricular surface of anterior MV leaflet, by Nicola,
05/24/24, pod#1
-Severe
-Mild asc. aorta dilatation (4.2 cm)
-KERNS
-LVEF 60% preop, 65% postop per intraop MARYANN
-Mild AI/MR
-Moderate posterior MAC
-Severe dilated left atrium
-Mild scattered sessile atheroma seen in the descending aorta and distal arch
-HTN
-T2DM (A1C 6.3)
-Class 3 obesity (BMI 44.3)
-HARITHA (uses CPAP)
-GERD/hiatal hernia
-DJD
-Mild right scoliosis
-Renal calculi
-Recent TEVIN, 05/13/24
-BPH (on Flomax)
-Colon polyps
-Appendiceal mass/mucocele S/P Lap Appendectomy (03/19/24)
-S/p L TKA (2022)
-S/P R hip replacement (2021)
-S/p Tonsillectomy
-Acute postop blood loss/Anemia (stable without blood transfusion)
-Acute postop atelectasis
-Acute postop hypovolemia with subsequent hypervolemia
-Postop TEVIN
-Acute postop pericarditis on EKG (+rub)
Discussed patient care with: Cardiology, Nursing, Respiratory Therapy, Pharmacy and Care Team
Subjective
Procedure
S/P #27 Inspiris Resilia valve placed & secured w/ 15 interrupted, pledgetted valve sutures & CorKnots/AV annulus debrided circumferentially including debridement of aortomitral curtain/ventricular surface of anterior MV leaflet, by Nicola, 05/24/24
-
Date of Service: May 25, 2024
Pt c/o incisional pain, otherwise feels well
Objective Data
-
PT 16.9 Sec (11.4-14.6) H 05/24/24 13:28
INR 1.40 05/24/24 13:28
APTT 31.6 Sec (23.4-35.0) 05/24/24 13:28
Vital Signs
Vital Signs
Temp Pulse Resp BP Pulse Ox
99.3 F 75 20 104/56 95
05/25/24 03:00 05/25/24 03:00 05/25/24 03:00 05/25/24 03:00 05/25/24 03:00
CT Intake/Output/Weight
05/24/24 05/24/24 05/25/24
06:59 18:59 06:59
Intake Total 447.5 / 814.5 367.0 / 814.5
Output Total 690 / 1145 455 / 1145
Balance -242.5 / -330.5 -88.0 / -330.5
SaO2: 95 (2L)
Physical Exam
-
General: Awake, Oriented and AOx3
Cardiovascular: Regular rate & rhythm, No Murmurs, No Rub and No Gallop
Respiratory: Decreased Breath Sounds (at bases, otherwise clear)
Sternum: Stable
Incision: Clean, Dry, Intact and Dressing Intact
Extremities: Other (+trace edema)
Data Reviewed
-
Lab Results: Results Reviewed
Medications: Active Meds Reviewed
Chest X-Ray: Report Reviewed and Image Reviewed
ECG: Report Reviewed and Image Reviewed
--- NOTE | 2024-05-25 04:00 | PTCARENOTE ---
Hourly rounds completed. Patient medicated for pain. Labs collected. remains at bedside.
[2024-05-25 04:03] LABS: Glucose - Point of Care 101 mg/dl (70-99)
[2024-05-25] MEDS: ROXICODONE 5 MG PO ×3 (04:08→13:09)
[2024-05-25] MEDS: ANCEF 5 IV ×2 (04:08→13:09)
[2024-05-25 04:12] LABS: Ionized Calcium 1.15 mMOL/L (1.15-1.33)
[2024-05-25 04:15] LABS: Hematocrit 29.4 % (39.0-52.0); Hemoglobin 9.3 g/dL (13.0-18.0); Mean Corp Hgb Conc. 31.6 g/dL (33.0-37.0); Mean Corpuscular Hgb 19.5 pg (27.0-31.0); Mean Corpuscular Volume 61.8 fL (80.0-94.0); Platelet Count 160 10^3/uL (130-400); Red Blood Cell Count 4.76 10^6/uL (4.70-6.10); Red Cell Dist. Width 15.2 % (11.5-14.5); White Blood Cell Count 11.3 10^3/uL (4.8-10.8)
[2024-05-25 04:42] LABS: Blood Urea Nitrogen 29 mg/dl (9-20); Calcium 8.6 mg/dl (8.4-10.2); Carbon Dioxide 22 mmol/L (22-30); Chloride 109 mmol/L (98-107); Estimated Creatinine Clearance 59 ml/min; Glucose 99 mg/dl (70-99); Magnesium 2.4 mg/dl (1.6-2.3); Potassium 4.3 mmol/L (3.5-5.1); Sodium 140 mmol/L (135-145); eGFR 44.18
[2024-05-25] MEDS: CALCIUM CHLORIDE 10% SYRINGE 60 MG IV (05:17)
[2024-05-25 06:00] LABS: Glucose - Point of Care 113 mg/dl (70-99)
[2024-05-25] MEDS: DILAUDID 0.5 MG IV (06:05)
[2024-05-25] MEDS: TYLENOL 1000 MG PO ×3 (06:05→21:11)
--- NOTE | 2024-05-25 07:38 | W.PN.INTV ---
Today's Communication / Plan
Recommendations
Increase activity
Wean FiO2
CPAP at night
Monitor chest tube output
Insulin drip continues
Assessment
-
63-year-old male with a history of obesity, diabetes, hypertension, HARITHA, nephrolithiasis, and CAD who was noted to have significant aortic stenosis and underwent AVR-precision machine operator consulted for postoperative ventilator/critical care management
05/24/2024.
Aortic stenosis status post AVR-05/24/2024-Dr. Petersen
Mild anemia-hemoglobin 12.6-kxfcqiipip-LQM 63.9
Mild hyperglycemia
Conditions present prior to admission:
Hypertension.
Hyperlipidemia.
CAD-nonobstructive.
Obesity.
HARITHA-moderate to bcybdn-RBG-41.1
Diabetes.
GERD.
Colon polyp.
Chronic pain.
Nephrolithiasis.
Renal insufficiency.
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
Right THR 2021. Left TKA 2022. Tonsillectomy.
Plan
Tolerated extubation
Wean FiO2
Encourage incentive spirometry
Increase activity
Aspiration precautions
Nebulizers if needed-currently not bronchospastic
DTUU-zsu-drkrufdsh at night
Pulmonary artery catheter and arterial line will be removed
Pressors have been weaned
Continue to monitor chest tube output
Follow hemoglobin
Continue to follow platelet count and coags
Transfuse blood product as needed
CT surgery following chest tubes as well
Follow blood sugar
Insulin supplementation continues as needed
Early nutrition
Early mobilization
DVT prophylaxis
Reviewed with at the bedside
Last seen by Dr. Alberts 12/15/20-we will recommend outpatient sleep disorders follow-up for yearly CPAP compliance/adjustments as needed
Reviewed the patient's pertinent medical records including radiographs, microbiology, laboratory evaluations, and discussion with primary team, and critical care nursing.
Diagnostic data:
Chest x-ray 12/08/2020-improved bibasilar opacifications
Chest x-ray 05/24/2024-mild pulmonary edema, partial obscuration of left hemidiaphragm may represent left lower lobe pneumonia versus small left pleural effusion
PFT/05/29-FEV1 3.06-90%, FVC 4.07-90%, TLC 83%, RV 69%, DLCO 96%, DLCO/VA 113%
Spirometry 05/13/2024-FEV1 2.8-86%, FVC 3.9-92%
HST 11/09/2020-BEVERLY-28.1
Subjective Dataa
Subjective Data
Date of Service:
Date of Service: May 25, 2024
Chief Complaint: Quantitative Manager Follow Up and Pulmonary Follow Up
Subjective:
Tolerated extubation, no complaints of shortness of breath, pain controlled, no chest congestion, abdominal pain, or increased leg swelling
Review of Systems
General: Other (Per HPI)
Objective Data
Data Reviewed
Vital Signs / I&O / Oxygen:
Vital Signs
Temp Pulse Resp BP Pulse Ox
99.7 F 77 17 113/55 92
05/25/24 06:00 05/25/24 07:00 05/25/24 07:00 05/25/24 07:00 05/25/24 07:00
Intake and Output
05/24/24 05/25/24 05/26/24
06:59 06:59 06:59
Intake Total 1104.6 / 1118.1 ..5
Output Total 1320 / 1320
Balance -215.4 / -201.9 13.5 / 13.5
SaO2 [CPAP] 94
SaO2 [SIMV] 95
SaO2 92
Nasal Cannula flow liters per 2
minute
Physical Exam
General: Respiratory Distress (n) and Comfortable
HEENT: Normocephalic, Anicteric and Moist Mucous Membranes
Cardiovascular: Regular Rhythm and Murmur (n)
Respiratory: Wheeze (n), Crackles (Rare basilar), Rhonchi (n), Non-Labored Respirations, Accessory Resp Muscle Use (n), Stridor and Chest Tube
GI: Soft, Non Distended and Non Tender
Neurology: Awake, Alert and No Motor Deficits
Skin: Warm, Good Color, Cyanosis (n), Jaundice (n) and Rash (n)
Labs/Micro/Reports
Lab Data
05/25/24 03:57
05/25/24 03:57
Laboratory Results
05/24/24 05/24/24
13:28 14:33
PT 16.9 H
INR 1.40
APTT 31.6
pH 7.34 L 7.39
pCO2 45 37
pO2 148 H 76 L
HCO3 24.3 22.4
O2 Delivery Level
[2024-05-25 07:58] LABS: Glucose - Point of Care 111 mg/dl (70-99)
--- NOTE | 2024-05-25 07:59 | W.PN.CD ---
Today's Communication / Plan
-
Cont post-op care
OOB and ISB
agree wtih renal dose colchicine with ECG concerning for pericarditis
Impression / Plan
-
BACKGROUND: 63M with HTN, NIDDM, HARITHA, and severe aortic stenosis who presents for SAVR
Bottom Precipitator Operator: Dr. Lopez
Severe aortic stenosis S/P #[address] Petersen on 05/24/2024
-Pre LVEF 60% without WMA, unchanged post
-MARYANN 18/9mmHg post without AI
-EKG low voltage with prolonged QT, EKG in am
-Education regarding antibiotic prophylaxis for dental and invasive procedures when he is awake
New ECG concerning for acute pericarditis
- given kidney function 1.7 agree with renal dosed colchicine
HTN
NIDDM, Hgba1c 6.3%, per primary
HARITHA
Obesity, BMI 43
SUBJECTIVE:
Feeling OK, main complaint is pain from sitting on his bottom
Physical Exam
Vital Signs/Labs
Vital Signs
Temp Pulse Resp BP Pulse Ox
99.5 F 77 18 113/55 94
05/25/24 07:55 05/25/24 07:00 05/25/24 07:55 05/25/24 07:00 05/25/24 07:55
05/24/24 05/25/24 05/26/24
06:59 06:59 06:59
Actual Weight 293 lb 6.964 oz 291 lb 3.69 oz
05/25/24 03:57
05/25/24 03:57
PT 16.9 Sec (11.4-14.6) H 05/24/24 13:28
INR 1.40 05/24/24 13:28
APTT 31.6 Sec (23.4-35.0) 05/24/24 13:28
Magnesium 2.4 mg/dl (1.6-2.3) H 05/25/24 03:57
Physical Exam
Constitutional: No acute distress
EENT: Anicteric
Cardiovascular: Rhythm & rate is regular, Pedal edema is absent and Systolic murmur present (soft)
Respiratory: Respiratory effort normal and Lungs clear to auscul.
GI: Soft
Neuro/Psych: AO x 3
Data Reviewed
-
Date of Service: May 25, 2024
EKG: Tracing Personally Visualized and interpreted (sr)
Echo: Report Reviewed by me
Labs: Labs Reviewed by me
--- NOTE | 2024-05-25 08:00 | PTCARENOTE ---
pt received from previous RN, oriented, OOB in chair. SR on the monitor, HR 70s. +rub. V wire in place, pacer box off. SBP 90-110s. palpable pulses, trace generalized edema. pt on 2LNC, 91-94% POX. IS encouraged. CT x2 connected to wall suction, no
crepitus noted. pt abdomen round, s/n, denies n/v. tolerating clears. Garcia in place, clear yellow urine. sternal dressing c/d/i. chest tube site c/d/i. RIJ cordis maintained. PIV. insulin gtt running as ordered. see worklist for VS, I&O, and
assessment.
--- NOTE | 2024-05-25 08:04 | W.PN.ANS.POP ---
Anesthesia Post Operative
- Anesthesia Post Op Note
Vital Signs Stable-See Nursing Note: Yes
Airway Patent: Yes
Adequate Pain Control: Yes
Change in Mental Status: No
Current Postoperative Nausea & Vomiting: No
Anesthesia Complications: No
General Anesthetic Recall: No
Unplanned Admission: No
Post Op Hydration Adequate: Yes
- -
Selected Entries
05/25/24
07:55 05/25/24
08:00 05/25/24
08:00
Temp 99.5 F
Pulse 76
Rhythm: Normal sinus
rhythm
Resp Rate 20
Blood pressure 114/56
MAP (cuff-Lissy Monitor) 72
SaO2 95
Nasal Cannula flow liters per minute 2
[2024-05-25] MEDS: NOVOLOG FLEXPEN SC (08:22)
[2024-05-25] MEDS: LIDOCAINE 4% PATCH 1 PATCH TOPICAL (08:28)
[2024-05-25] MEDS: PROTONIX 40 MG PO (08:28)
[2024-05-25] MEDS: NEURONTIN 100 MG PO ×3 (08:28→21:10)
[2024-05-25] MEDS: SENOKOT-S 1 TABLET PO ×2 (08:28→20:00)
[2024-05-25] MEDS: FLOMAX 0.4 MG PO (08:28)
[2024-05-25] MEDS: LOW STRENGTH ASPIRIN 81 MG PO (08:28)
[2024-05-25] MEDS: PACERONE 200 MG PO ×4 (08:28→21:11)
[2024-05-25] MEDS: NOVOLIN R INSULIN INFUSION 100 IV (08:29)
[2024-05-25] MEDS: BACTROBAN 2% OINTMENT 1 APPLIC NASAL ×2 (08:29→20:00)
[2024-05-25] MEDS: COLCHICINE 0.3 MG PO (09:58)
[2024-05-25 10:03] LABS: Glucose - Point of Care 124 mg/dl (70-99)
--- NOTE | 2024-05-25 10:55 | CM ---
Chart reviewed. Patient is independent of ADLS, lives with his in a 2STH, 1st floor set up, 2 TABBY, 0 DME. Plan is for the patient to return home. CM to follow
[2024-05-25] MEDS: NOVOLOG FLEXPEN 4 UNITS SC ×2 (11:37→17:55)
[2024-05-25 12:13] LABS: Glucose - Point of Care 133 mg/dl (70-99)
--- NOTE | 2024-05-25 12:20 | PTCARENOTE ---
pt VSS, no changes in assessment. IS encouraged. pt placed back to bed x2 assist. at bedside.
[2024-05-25] MEDS: NSS IV (12:21)
[2024-05-25 14:17] LABS: Glucose - Point of Care 140 mg/dl (70-99)
[2024-05-25 15:25] LABS: Glucose - Point of Care 101 mg/dl (70-99)
--- NOTE | 2024-05-25 16:15 | PTCARENOTE ---
pt VSS, no changes in assessment. OOB to chair x2 assist. insulin gtt running as ordered.
[2024-05-25 16:27] LABS: Glucose - Point of Care 89 mg/dl (70-99)
[2024-05-25] MEDS: LOPRESSOR 12.5 MG PO ×2 (16:55→21:10)
[2024-05-25] MEDS: ROXICODONE 2.5 MG PO (17:55)
[2024-05-25 17:59] LABS: Glucose - Point of Care 84 mg/dl (70-99)
[2024-05-25 19:07] LABS: Glucose - Point of Care 163 mg/dl (70-99)
[2024-05-25 21:04] LABS: Glucose - Point of Care 199 mg/dl (70-99)
--- NOTE | 2024-05-25 21:46 | PTCARENOTE ---
Assumed pt care. Walking rounds completed with previous RN. Pt OOB in chair at time of assessment. AAO x 4, reports intermittent sternal pain with inspiration - see MAR. Pt on 2L NC - POX 96%, coarse BS in L posterior base, diminished in R base. IS
& CDB encouraged, non-productive cough. CT x 2 present & patent - no air leak/crepitus, site care provided. Pt on NSR on monitor, heart tones normal, distal pulses +1, trace LE edema present. Temporary epicardial v-wire present - off. Pt assisted
into bed with assist x 2, tolerated activity well. BS hypoactive, denies n/v, reports good appetite. Insulin gtt con't per protocol - pt consumed muffin without insulin SSI coverage - education provided. Garcia catheter maintained, care provided, UO
~ 75 mL/hr. Procedural sites intact. RIJ Cordis maintained with KVO. PIV x 1 present & patent. Pt brushed teeth & washed face. CHG cloth bath performed. See MAR.
[2024-05-25 22:18] LABS: Glucose - Point of Care 115 mg/dl (70-99)
--- NOTE | 2024-05-25 23:00 | PTCARENOTE ---
report received from previous RN, walking rounds done, assumed care of pt. pt in bed, sleeping. insulin gtt infusing per glycemic protocol. VSS. NSR on monitor, HR 70s. epicardial wires intact and off. POX 94% on 2LNC. CT output and UO WNL. RIJ
cordis intact w KVO infusing. all surgical sites stable. pt's at bedside. see worklist for full assessment, VS, and interventions.
[2024-05-26] VITALS (17 sets, daily range): BP systolic 102–156; BP diastolic 52–75; PULSE 86; O2SAT 94–99; BMI 43.9
[2024-05-26 00:41] LABS: Glucose - Point of Care 71 mg/dl (70-99)
[2024-05-26 03:50] LABS: Glucose - Point of Care 119 mg/dl (70-99)
[2024-05-26] MEDS: ROXICODONE 5 MG PO (03:53)
[2024-05-26 04:18] LABS: Hematocrit 26.7 % (39.0-52.0); Hemoglobin 8.2 g/dL (13.0-18.0); Mean Corp Hgb Conc. 30.7 g/dL (33.0-37.0); Mean Corpuscular Hgb 19.1 pg (27.0-31.0); Mean Corpuscular Volume 62.1 fL (80.0-94.0); Platelet Count 123 10^3/uL (130-400); Red Cell Dist. Width 15.4 % (11.5-14.5); White Blood Cell Count 9.9 10^3/uL (4.8-10.8)
[2024-05-26 04:21] LABS: Blood Urea Nitrogen 32 mg/dl (9-20); Calcium 7.9 mg/dl (8.4-10.2); Carbon Dioxide 24 mmol/L (22-30); Chloride 105 mmol/L (98-107); Estimated Creatinine Clearance 52 ml/min; Glucose 110 mg/dl (70-99); Potassium 4.3 mmol/L (3.5-5.1); Sodium 139 mmol/L (135-145); eGFR 38.66
--- NOTE | 2024-05-26 04:50 | W.PN.CT ---
Addendum entered and electronically signed by Yasir Petersen MD 05/26/24 07:16:
I saw and examined the patient.
The PA's note was reviewed and I agree with the note.
Comment:
Postop day #2 status post AVR
Doing well overall. Minor TEVIN with creatinine of 1.9 (previously 1.7)
Maintain Amaya today to closely monitor urine output
DC chest tubes
Out of bed/I-S/ambulate
Original Note:
Today's Communication / Plan
-
Plan:
-No major issues overnight. Hemodynamically and neurologically intact
-Remains on insulin gtt per protocol, will transition off and transfer to tele phase when off today. Cannot resume Metformin given TEVIN
-Postop EKG c/w acute pericarditis, will avoid NSAIDs given cr 1.9. Currently on renal dose Colchicine, may need to d/c if cr continues to rise
-Consider d/c of chest tubes: 2 meds 100/225
-Cont. current meds (ASA, Amiodarone, Lopressor, Flomax)
-Keep amaya another day to avoid issues with acute urinary retention, pt had TEVIN preop has BPH and is on Flomax. Cr this AM is 1.9
-Holding mag oxide given mg of 2.4 today
-Maintain temporary PW (will cut before d/c home)
-Maintain cordis (will d/c on POD#3)
-Wean off of O2 as tolerated
-Encourage use of IS
-OOB into chair/Ambulate
-Home likely in 2 days
Assessment / Plan
-
Assessment:
-S/P #27 Inspiris Resilia valve placed & secured w/ 15 interrupted, pledgetted valve sutures & CorKnots/AV annulus debrided circumferentially including debridement of aortomitral curtain/ventricular surface of anterior MV leaflet, by Nicola,
05/24/24, pod#2
-Severe
-Mild asc. aorta dilatation (4.2 cm)
-KERNS
-LVEF 60% preop, 65% postop per intraop MARYANN
-Mild AI/MR
-Moderate posterior MAC
-Severe dilated left atrium
-Mild scattered sessile atheroma seen in the descending aorta and distal arch
-HTN
-T2DM (A1C 6.3)
-Class 3 obesity (BMI 44.3)
-HARITHA (uses CPAP)
-GERD/hiatal hernia
-DJD
-Mild right scoliosis
-Renal calculi
-Recent TEVIN, 05/13/24
-BPH (on Flomax)
-Colon polyps
-Appendiceal mass/mucocele S/P Lap Appendectomy (03/19/24)
-S/p L TKA (2022)
-S/P R hip replacement (2021)
-S/p Tonsillectomy
-Acute postop blood loss/Anemia (stable without blood transfusion)
-Acute postop atelectasis
-Acute postop hypovolemia with subsequent hypervolemia
-Postop TEVIN
-Acute postop pericarditis on EKG (+rub)
Discussed patient care with: Cardiology, Nursing, Respiratory Therapy, Pharmacy and Care Team
Subjective
Procedure
S/P #27 Inspiris Resilia valve placed & secured w/ 15 interrupted, pledgetted valve sutures & CorKnots/AV annulus debrided circumferentially including debridement of aortomitral curtain/ventricular surface of anterior MV leaflet, by Nicola, 05/24/24
-
Date of Service: May 26, 2024
Pt c/o mild incisional pain, otherwise feels well
Objective Data
-
Lab Results
05/26/24 03:45
05/26/24 03:45
PT 16.9 Sec (11.4-14.6) H 05/24/24 13:28
INR 1.40 05/24/24 13:28
APTT 31.6 Sec (23.4-35.0) 05/24/24 13:28
Vital Signs
Vital Signs
Temp Pulse Resp BP Pulse Ox
98.7 F 82 21 123/58 97
05/26/24 03:00 05/26/24 03:00 05/26/24 03:00 05/26/24 03:00 05/26/24 03:00
CT Intake/Output/Weight
05/25/24 05/25/24 05/26/24
06:59 18:59 06:59
Intake Total 657.1 / 1118.1 159.4 / 281.7 122.3 / 281.7
Output Total 630 / 1320 585 / 1100 515 / 1100
Balance 27.1 / -201.9 -425.6 / -818.3 -392.7 / -818.3
SaO2: 97 (2L)
Physical Exam
-
General: Awake, Oriented and AOx3
Cardiovascular: Regular rate & rhythm, No Murmurs and Rub (acute pericarditis)
Respiratory: Decreased Breath Sounds (at bases, otherwise clear)
Sternum: Stable
Incision: Clean, Dry, Intact and Dressing Intact
Extremities: Other (+trace edema)
Data Reviewed
-
Lab Results: Results Reviewed
Medications: Active Meds Reviewed
Chest X-Ray: Report Reviewed and Image Reviewed
ECG: Report Reviewed and Image Reviewed
[2024-05-26] MEDS: TYLENOL 1000 MG PO ×3 (05:08→21:42)
[2024-05-26 05:12] LABS: Glucose - Point of Care 116 mg/dl (70-99)
--- NOTE | 2024-05-26 06:00 | PTCARENOTE ---
no acute changes overnight. NSR. 2LNC overnight, now on RA. CT output and UO WNL. insulin gtt maintained. all surgical sites stable. pt assisted OOB to chair, weight obtained.
[2024-05-26] MEDS: CALCIUM CHLORIDE 10% SYRINGE 60 MG IV (06:57)
[2024-05-26 07:01] LABS: Glucose - Point of Care 103 mg/dl (70-99)
--- NOTE | 2024-05-26 07:37 | W.PN.INTV ---
Today's Communication / Plan
Recommendations
CPAP at night
Wean oxygen
Increase activity
Monitor chest tube output
Monitor renal function
Transition off insulin drip
Likely transfer to telemetry-call pulmonary if respiratory issues arise
Outpatient sleep disorders follow-up
Assessment
-
63-year-old male with a history of obesity, diabetes, hypertension, HARITHA, nephrolithiasis, and CAD who was noted to have significant aortic stenosis and underwent AVR-junior underwriter consulted for postoperative ventilator/critical care management
05/24/2024.
Aortic stenosis status post AVR-05/24/2024-Dr. Petersen
Mild anemia-hemoglobin 12.0-rosxvffvuq-YDO 63.9
Mild hyperglycemia
Conditions present prior to admission:
Hypertension.
Hyperlipidemia.
CAD-nonobstructive.
Obesity.
HARITHA-moderate to [id number]-46.1
Diabetes.
GERD.
Colon polyp.
Chronic pain.
Nephrolithiasis.
Renal insufficiency.
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
Right THR 2021. Left TKA 2022. Tonsillectomy.
Plan
Respiratory status and hemodynamics stable
Encourage incentive spirometry
Increase activity/out of bed
Aspiration precautions
Nebulizers if needed-currently not bronchospastic
PESY-xld-wdzzjbshm at night-encouraged wearing it tonight-did not wear it last night-only supplemental oxygen
Pressors and inotropes as needed
Follow chest tube output
Follow hemoglobin
Continue to follow platelet count and coags
Transfuse blood product as needed
CT surgery following chest tubes as well
Follow blood sugar
Insulin supplementation continues as needed
Metformin on hold
Monitor renal function-serum creatinine increased slightly
Nutrition
Early mobilization
DVT prophylaxis
Last seen by Dr. Alberts 12/15/20-we will recommend outpatient sleep disorders follow-up for yearly CPAP compliance/adjustments as needed
Reviewed the patient's pertinent medical records including radiographs, microbiology, laboratory evaluations, and discussion with primary team, and critical care nursing.
Diagnostic data:
Chest x-ray 12/08/2020-improved bibasilar opacifications
Chest x-ray 05/24/2024-mild pulmonary edema, partial obscuration of left hemidiaphragm may represent left lower lobe pneumonia versus small left pleural effusion
PFT/05/29-FEV1 3.06-90%, FVC 4.07-90%, TLC 83%, RV 69%, DLCO 96%, DLCO/VA 113%
Spirometry 05/13/2024-FEV1 2.8-86%, FVC 3.9-92%
HST 11/09/2020-BEVERLY-28.1
Subjective Dataa
Subjective Data
Date of Service:
Date of Service: May 26, 2024
Chief Complaint: Barrel Rifler Broach Follow Up and Pulmonary Follow Up
Subjective:
Patient on oxygen at night, did not wear his CPAP, pain controlled, out of bed, no complaints of worsening shortness of breath, chest pain, abdominal pain
Review of Systems
General: Other (Per HPI)
Objective Data
Data Reviewed
Vital Signs / I&O / Oxygen:
Vital Signs
Temp Pulse Resp BP Pulse Ox
98.7 F 75 16 127/65 93
05/26/24 03:00 05/26/24 07:00 05/26/24 07:00 05/26/24 07:00 05/26/24 07:00
Intake and Output
05/25/24 05/26/24 05/27/24
06:59 06:59 06:59
Intake Total 1104.6 / 1118.1 322.2 / 335.7 13.5 / 13.5
Output Total 1320 / 1320 1355 / 1415 60 / 60
Balance -215.4 / -201.9 -1032.8 / -1079.3 -46.5 / -46.5
SaO2 [CPAP] 94
SaO2 [SIMV] 95
SaO2 93
Nasal Cannula flow liters per 2
minute
Physical Exam
General: Respiratory Distress (n) and Comfortable
HEENT: Normocephalic, Anicteric and Moist Mucous Membranes
Cardiovascular: Regular Rhythm and Murmur (n)
Respiratory: Wheeze (n), Crackles (Rare basilar), Rhonchi (n), Non-Labored Respirations, Accessory Resp Muscle Use (n), Stridor and Chest Tube
GI: Soft, Non Distended and Non Tender
Neurology: Awake, Alert and No Motor Deficits
Skin: Warm, Good Color, Cyanosis (n), Jaundice (n) and Rash (n)
Labs/Micro/Reports
Lab Data
05/26/24 03:45
05/26/24 03:45
[2024-05-26 07:48] LABS: Glucose - Point of Care 118 mg/dl (70-99)
--- NOTE | 2024-05-26 08:00 | PTCARENOTE ---
pt received from previous RN, oriented, OOB in chair. SR on the monitor, HR 70-80. +rub. V wire in place, pacer box off. SBP 120s. palpable pulses, trace generalized edema. pt on RA, 93-95% POX. IS encouraged. CT x2 connected to wall suction, no
crepitus noted. pt abdomen round, s/n, denies n/v. tolerating diet. Garcia in place, clear yellow urine. sternal dressing c/d/i. chest tube site c/d/i. RIJ cordis maintained. PIV. insulin gtt running as ordered. see worklist for VS, I&O, and
assessment.
[2024-05-26] MEDS: NOVOLOG FLEXPEN 4 UNITS SC ×3 (08:16→17:59)
[2024-05-26] MEDS: FLOMAX 0.4 MG PO (09:05)
[2024-05-26] MEDS: SENOKOT-S 1 TABLET PO ×2 (09:05→21:41)
[2024-05-26] MEDS: MAGNESIUM OXIDE 500 MG PO ×2 (09:06→21:41)
[2024-05-26] MEDS: COLCHICINE 0.3 MG PO (09:06)
[2024-05-26] MEDS: LOPRESSOR 12.5 MG PO ×2 (09:06→21:39)
[2024-05-26] MEDS: PACERONE 200 MG PO ×3 (09:06→21:42)
[2024-05-26] MEDS: PROTONIX 40 MG PO (09:06)
[2024-05-26] MEDS: NEURONTIN 100 MG PO ×3 (09:07→21:41)
[2024-05-26] MEDS: LIDOCAINE 4% PATCH 1 PATCH TOPICAL (09:07)
[2024-05-26] MEDS: LASIX 20 MG IV (09:07)
[2024-05-26] MEDS: LOW STRENGTH ASPIRIN 81 MG PO (09:07)
[2024-05-26] MEDS: ROXICODONE 2.5 MG PO (09:08)
[2024-05-26] MEDS: NSS 500 IV (09:09)
[2024-05-26] MEDS: BACTROBAN 2% OINTMENT 1 APPLIC NASAL ×2 (09:09→21:38)
[2024-05-26 09:18] LABS: Glucose - Point of Care 156 mg/dl (70-99)
--- NOTE | 2024-05-26 10:35 | W.PN.CD ---
Today's Communication / Plan
-
Agree with care
Impression / Plan
-
Background: 63M with HTN, NIDDM, HARITHA, and severe aortic stenosis who presents for SAVR. Normal coronaries
[employer] Coach: Dr. Lopez
Severe aortic stenosis S/P #[address] Petersen on 05/24/2024
-Pre LVEF 60% without WMA, unchanged post
-MARYANN (postop findings): good LV/RV, mild LVOT gradient, AVR good: 18/9mmHg post without AI
-EKG low voltage with prolonged QT, mild VA depression/ST elevation c/w pericardial pattern
-Education regarding antibiotic prophylaxis for dental (not other procedures)
New ECG concerning for acute pericarditis
- given kidney function 1.7 agree with renal dosed colchicine
HTN
NIDDM, Hgba1c 6.3%, per primary
HARITHA
Obesity, BMI 43
CKD, Cr 1.6 in March 2024
- Monitor
Subjective:
Feels well. Incisional pain well controlled
Physical Exam
Vital Signs/Labs
Vital Signs
Temp Pulse Resp BP Pulse Ox
98.2 F 88 21 113/68 90
05/26/24 08:00 05/26/24 10:00 05/26/24 10:00 05/26/24 10:00 05/26/24 10:00
05/25/24 05/26/24 05/27/24
06:59 06:59 06:59
Actual Weight 132.1 kg 134.9 kg
05/26/24 03:45
05/26/24 03:45
PT 16.9 Sec (11.4-14.6) H 05/24/24 13:28
INR 1.40 05/24/24 13:28
APTT 31.6 Sec (23.4-35.0) 05/24/24 13:28
Magnesium 2.0 mg/dl (1.6-2.3) 05/26/24 03:45
Physical Exam
Constitutional: No acute distress
Cardiovascular: Rhythm & rate is regular and Pedal edema is absent
Respiratory: Respiratory effort normal and Lungs clear to auscul. (decrease at left base)
GI: Soft and Distention absent
Neuro/Psych: AO x 3
Data Reviewed
-
Date of Service: May 26, 2024
--- NOTE | 2024-05-26 11:36 | CM ---
Chart reviewed. Patient is independent of ADLS, lives with his in a 2 STH, 1st floor set up, 2 TABBY, 0 DME. Plan is for the patient to return home with CT Transitional RN. CM to follow
[2024-05-26 12:11] LABS: Glucose - Point of Care 153 mg/dl (70-99)
--- NOTE | 2024-05-26 12:35 | PTCARENOTE ---
pt VSS, pt placed back to bed w/ 2 person assist. Med CTs dc'd as ordered, dressing c/d/i. OOB to chair for lunch. ambulated in hallway w/ CR. ora hygiene performed.
--- NOTE | 2024-05-26 13:33 | PN.DE.MGMTRT ---
Insulin Management
- -
: Diabetes Management Consult
63 year old male with PMH: CAD, HTN, HLD, HARITHA, Obesity, Nephrolithiasis, GERD, Colon polyp, renal insufficiency and Diabetes, who was noted to have significant and underwent AVR. Diabetes mgt consulted for assistance with transitioning pt off
insulin infusion on 05/26/2024.
States he was starting on MFM couple of years ago due to prediabetes. He does not monitor his blood sugars but takes his meds daily. Current A1C 6.3%, Cr 1.9 (1.3 on admission), eGFR 38.66
Pt awake, A/O x3, sitting up in chair, pleasant, offers no complaints, able to discuss diabetes mgt. and brother at bedside, supportive.
Currently on Critical care Glycemic protocol. Glucose range 71 to 156, requiring 0.1 to 5 units of insulin/hr and 4 units corrective insulin with meals.
Will transition off drip to SQ inulin. HOLD Metformin due to TEVIN with Cr of 1.9
Give Lantus 15 units X1 NOW. Turn drip off 1hr after giving Lantus.
Start low dose AC NovoLog 4 units and low corrective with meals.
Monitor kidney fxn and resume MFM when Cr is at baseline.
Discussed providing pt with glucose monitor and informed him that supplies for monitor might be an out of pocket cost for him given his current A1C.
and pt elected to get [employer] glucose monitor.
Discussed pre-diabetes class and encouraged pt to attend.
Diabetes History
- -
Type of Diabetes: 2
Pre-Admission Diabetes Regimen
05/26/24
03:45
Creatinine 1.9 H
Lab Results
Hemoglobin A1c 6.3 % (4.0-5.6) H 05/13/24 12:41
Insulin Pump Settings
IP Diabetes Regimen
05/25/24 05/25/24 05/25/24
14:15 15:24 16:26
Glucose
POC Glucose 140 H 101 H 89
05/25/24 05/25/24 05/25/24
17:56 19:06 21:02
Glucose
POC Glucose 84 163 H 199 H
05/25/24 05/26/24 05/26/24
22:16 00:40 02:14
Glucose
POC Glucose 115 H 71 118 H
05/26/24 05/26/24 05/26/24
03:45 03:48 05:10
Glucose 110 H
POC Glucose 119 H 116 H
05/26/24 05/26/24 05/26/24
07:00 09:16 12:10
Glucose
POC Glucose 103 H 156 H 153 H
Meal type: Breakfast
Meal type: Dinner
Amount consumed: 100%
Patient Education
[2024-05-26] MEDS: LANTUS 0.15 UNITS SC (14:07)
[2024-05-26 14:10] LABS: Glucose - Point of Care 146 mg/dl (70-99)
[2024-05-26 15:13] LABS: Glucose - Point of Care 136 mg/dl (70-99)
--- NOTE | 2024-05-26 16:00 | PTCARENOTE ---
pt VSS, no changes in assessment. pt ambulated in hallway w/ RN. Lantus given as ordered, insulin gtt off 1hr after as ordered. pt placed to bed for nap per pt request.
[2024-05-26] MEDS: NON-FORMULARY ITEM 15 MEQ PO (17:20)
[2024-05-26 17:59] LABS: Glucose - Point of Care 136 mg/dl (70-99)
[2024-05-26] MEDS: NOVOLOG FLEXPEN-LOW RESISTANCE SC (17:59)
--- NOTE | 2024-05-26 20:45 | PTCARENOTE ---
Report received from TITA Meehan. Pt assessed and VS done. See VS flowsheet. Pt sitting in chair. Awake, alert, oriented x 4. Moves all extremities equally. Helped back to bed with 2 RNs. BBS present. Slightly More decreased to L base. CDB and IS
encouraged. IS peak 1500 mls. Sats on room air i chair are 91-93%. Sats in bed are similar. 2L/NC applied. Sats up to 95%. At bedtime, CPAP applied (his home CPAP). No supplemental O2. Sats 93-95%. Audible heart tones. Pt in SR. Normotensive (see VS
flowsheet). Fpr pulse and wound assessments, see flowsheets. V wire attached to pacer. Old CT sites with dressing dry and intact. Belly soft, obese, nontender. Normoactive bs x 4. Garcia intact, draining clear, yellow urine. at bedside. C/O
sternal pain with movements, transfers. States he does not have pain when lying still. Ongoing plan of care.
[2024-05-26 21:52] LABS: Glucose - Point of Care 180 mg/dl (70-99)
[2024-05-26] MEDS: NOVOLOG FLEXPEN 1 UNITS SC (22:55)
--- NOTE | 2024-05-26 23:00 | PTCARENOTE ---
Evening glucose 180. JUAQUIN Snowden notified. Novolog 1 unit given SC to R upper arm as ordered. Pt remains in SR. Sats 93% on CPAP. Pt attempting to go back to sleep. No complaints of pain. at bedsdie and staying overnight. VS done. See VS
flowsheet.
[2024-05-27] VITALS (12 sets, daily range): BP systolic 95–139; BP diastolic 45–76; PULSE 93; O2SAT 94–98; BMI 43.9
--- NOTE | 2024-05-27 04:15 | PTCARENOTE ---
VS done. See flowsheet. Labs drawn and sent. Pt denies pain. Remains on CPAP overnight. remains at bedside.
--- NOTE | 2024-05-27 04:27 | W.PN.CT ---
Today's Communication / Plan
-
-pod #3
-no issues overnight, no complaints
-labs are pending
-follow Cr (1.9 on 05/26 and 1.4 preop)
-wt is 4 lbs up from preop - diuresed 1140cc with 20 iv Lasix on 05/26 - continue
-current meds (ASA, Amio, Lopressor, Colchicine, Flomax, ISS)
-encourage IS, OOB, ambulate
Assessment / Plan
-
Assessment:
-S/P #27 Inspiris Resilia valve placed & secured w/ 15 interrupted, pledgetted valve sutures & CorKnots/AV annulus debrided circumferentially including debridement of aortomitral curtain/ventricular surface of anterior MV leaflet, by Nicola,
05/24/24, pod#3
-Severe
-Mild asc. aorta dilatation (4.2 cm)
-KERNS
-LVEF 60% preop, 65% postop per intraop MARYANN
-Mild AI/MR
-Moderate posterior MAC
-Severe dilated left atrium
-Mild scattered sessile atheroma seen in the descending aorta and distal arch
-HTN
-T2DM (A1C 6.3)
-Class 3 obesity (BMI 44.3)
-HARITHA (uses CPAP)
-GERD/hiatal hernia
-DJD
-Mild right scoliosis
-Renal calculi
-Recent TEVIN, 05/13/24
-BPH (on Flomax)
-Colon polyps
-Appendiceal mass/mucocele S/P Lap Appendectomy (03/19/24)
-S/p L TKA (2022)
-S/P R hip replacement (2021)
-S/p Tonsillectomy
-Acute postop blood loss/Anemia (stable without blood transfusion)
-Acute postop atelectasis
-Acute postop hypovolemia with subsequent hypervolemia
-Postop TEVIN
-Acute postop pericarditis on EKG (+rub)
Discussed patient care with: Nursing and Care Team
Subjective
Procedure
S/P #27 Inspiris Resilia valve placed & secured w/ 15 interrupted, pledgetted valve sutures & CorKnots/AV annulus debrided circumferentially including debridement of aortomitral curtain/ventricular surface of anterior MV leaflet, by Nicola, 05/24/24
-
Date of Service: May 27, 2024
Objective Data
-
PT 16.9 Sec (11.4-14.6) H 05/24/24 13:28
INR 1.40 05/24/24 13:28
APTT 31.6 Sec (23.4-35.0) 05/24/24 13:28
Vital Signs
Vital Signs
Temp Pulse Resp BP Pulse Ox
98.8 F 72 15 102/64 95
05/26/24 22:54 05/27/24 00:00 05/26/24 22:54 05/26/24 22:54 05/27/24 01:07
CT Intake/Output/Weight
05/26/24 05/26/24 05/27/24
06:59 18:59 06:59
Intake Total 162.8 / 335.7 131.6 / 201.6 70 / 201.6
Output Total 770 / 1415 1175 / 1500 325 / 1500
Balance -607.2 / -1079.3 -1043.4 / -1298.4 -255 / -1298.4
SaO2: 95
Physical Exam
-
General: Awake and AOx3
Cardiovascular: Regular rate & rhythm, No Murmurs and Rub
Respiratory: Decreased Breath Sounds
Sternum: Stable
Incision: Clean, Dry and Dressing Intact
Extremities: Edema +2 (improving per )
Data Reviewed
-
Lab Results: Results Reviewed
Medications: Active Meds Reviewed
Chest X-Ray: Report Reviewed and Image Reviewed
ECG: Report Reviewed and Image Reviewed
[2024-05-27 04:57] LABS: Hematocrit 25.3 % (39.0-52.0); Mean Corp Hgb Conc. 31.6 g/dL (33.0-37.0); Mean Corpuscular Hgb 19.6 pg (27.0-31.0); Mean Corpuscular Volume 61.9 fL (80.0-94.0); Platelet Count 117 10^3/uL (130-400); Red Blood Cell Count 4.09 10^6/uL (4.70-6.10); Red Cell Dist. Width 15.2 % (11.5-14.5); White Blood Cell Count 7.1 10^3/uL (4.8-10.8)
[2024-05-27 05:04] LABS: Blood Urea Nitrogen 31 mg/dl (9-20); Calcium 7.7 mg/dl (8.4-10.2); Carbon Dioxide 24 mmol/L (22-30); Chloride 104 mmol/L (98-107); Estimated Creatinine Clearance 67 ml/min; Glucose 129 mg/dl (70-99); Magnesium 1.9 mg/dl (1.6-2.3); Potassium 3.9 mmol/L (3.5-5.1); Sodium 138 mmol/L (135-145); eGFR 51.35
[2024-05-27] MEDS: TYLENOL 1000 MG PO ×2 (06:30→21:06)
--- NOTE | 2024-05-27 06:34 | PTCARENOTE ---
Pt helped up to standing scale with 3 RNs. Pt then helped to chair. Dr. Petersen at bedside this am.
--- NOTE | 2024-05-27 07:00 | PTCARENOTE ---
Bedside walking rounds report received. Patient seen on rounds oob in chair on room air: awake alert and oriented. Neuro intact. NSR on monitor. Plan: diurese via IV lasix and dc amaya catheter around noon. Patient educated as to creatinine numbers
trending down to 1.5 today. See flowrecord for remaining assessments.
--- NOTE | 2024-05-27 07:57 | PN.DE.MGMTRT ---
Addendum entered and electronically signed by Keturah Lopez NP 05/27/24 13:51:
Contour Next not covered, RX for OneTouch Verio with strips and lancets entered in ambulatory orders.
Original Note:
Insulin Management
- -
: Diabetes Management Consult Follow up
Patient admitted 05/24 for AVR. PMH: CAD, HTN, HLD, HARITHA, Obesity, Nephrolithiasis, GERD, Colon polyp, renal insufficiency and Diabetes, who was noted to have significant and underwent AVR. Diabetes mgt consulted for assistance with transitioning
pt off insulin infusion on 05/26/2024.
States he was taking metformin for prediabetes. He does not monitor his blood sugars but takes his meds daily. Current A1C 6.3%, Cr 1.9 (1.3 on admission), eGFR 38.66. Per medical records patient was diagnosed with type 2 diabetes 2018 by primary
doctor.
Pt awake, A/O x3, sitting up in chair, pleasant, offers no complaints, able to discuss diabetes mgt. at bedside and supportive.
Transitioned from glycemic protocol yesterday with lantus 15 units and 4 units novolog AC with low corrective. CM researched cost of Farxiga, $20 per month, patient is agreeable. Farxiga 10 mg started this AM. Will stop AC novolog continue low
corrective insulin AC.
Full instruction on benefits of Farxiga and importance of hydration. Provided Contour Next meter and demonstrated with good return demonstration. Patient to test BID in pattern provided in diabetes education booklet. Patient verbalized
understanding. RX for Farxiga and test strips and lancets in ambulatory orders.
Diabetes History
- -
Type of Diabetes: 2
Pre-Admission Diabetes Regimen
05/27/24
04:24
Creatinine 1.5 H
Lab Results
Hemoglobin A1c 6.3 % (4.0-5.6) H 05/13/24 12:41
Insulin Pump Settings
IP Diabetes Regimen
05/26/24 05/26/24 05/26/24
09:16 12:10 14:09
Glucose
POC Glucose 156 H 153 H 146 H
05/26/24 05/26/24 05/26/24
15:12 17:57 21:51
Glucose
POC Glucose 136 H 136 H 180 H
05/27/24
04:24
Glucose 129 H
POC Glucose
Meal type: Breakfast
Patient Education
[2024-05-27] MEDS: PACERONE 200 MG PO ×3 (08:42→21:07)
[2024-05-27] MEDS: LOW STRENGTH ASPIRIN 81 MG PO (08:42)
[2024-05-27] MEDS: MAGNESIUM OXIDE 500 MG PO ×2 (08:42→20:13)
[2024-05-27] MEDS: FLOMAX 0.4 MG PO (08:42)
[2024-05-27] MEDS: PROTONIX 40 MG PO (08:42)
[2024-05-27] MEDS: FARXIGA 10 MG PO (08:42)
[2024-05-27] MEDS: LOPRESSOR 12.5 MG PO ×2 (08:43→20:13)
[2024-05-27] MEDS: SENOKOT-S 1 TABLET PO ×2 (08:43→20:13)
[2024-05-27] MEDS: NEURONTIN 100 MG PO ×3 (08:43→21:07)
[2024-05-27] MEDS: LIDOCAINE 4% PATCH 1 PATCH TOPICAL (08:47)
[2024-05-27] MEDS: COLCHICINE 0.3 MG PO (08:47)
[2024-05-27] MEDS: BACTROBAN 2% OINTMENT 1 APPLIC NASAL ×2 (08:48→20:12)
--- NOTE | 2024-05-27 08:48 | W.PN.CD ---
Today's Communication / Plan
-
continue post op care per CT surgery
follow up ECG
Impression / Plan
-
Background: 63M with HTN, NIDDM, HARITHA, and severe aortic stenosis who presents for SAVR. Normal coronaries
[employer] Clarinets: Dr. Lopez
Severe aortic stenosis S/P #[address] [facility] [address] Petersen on 05/24/2024
-Pre LVEF 60% without WMA, unchanged post
-MARYANN (postop findings): good LV/RV, mild LVOT gradient, AVR good: 18/9mmHg post without AI
post op ECG raised soem question of pericarditis . Currently on low dose colchicine. Patient without symptoms currently
- cautious use of cochicine with renal insufficiency. will reviw plan for treatment with rest of team
- repeat ECG
CKD, Cr 1.6 in March 2024. sarah to 1.9. now improving adn down to 1.5
- Monitor
HTN
NIDDM, Hgba1c 6.3%, per primary
HARITHA
Subjective:
Feels well. Incisional pain well controlled
Physical Exam
Vital Signs/Labs
Vital Signs
Temp Pulse Resp BP Pulse Ox
98.1 F 85 18 115/76 94
05/27/24 08:41 05/27/24 08:41 05/27/24 08:41 05/27/24 08:41 05/27/24 08:41
05/26/24 05/27/24 05/28/24
06:59 06:59 06:59
Actual Weight 134.9 kg 134.8 kg
05/27/24 04:24
05/27/24 04:24
PT 16.9 Sec (11.4-14.6) H 05/24/24 13:28
INR 1.40 05/24/24 13:28
APTT 31.6 Sec (23.4-35.0) 05/24/24 13:28
Magnesium 1.9 mg/dl (1.6-2.3) 05/27/24 04:24
Physical Exam
Constitutional: No acute distress
Cardiovascular: Rhythm & rate is regular
Respiratory: Respiratory effort normal and Wheeze Absent
GI: Soft
Neuro/Psych: Alert
Data Reviewed
-
Date of Service: May 27, 2024
Medical Decision Making: Reviewed Test Results
Medical Tests (PFT, Pathology etc): Report Reviewed by me
Labs: Labs Reviewed by me
[2024-05-27] MEDS: NON-FORMULARY ITEM 15 MEQ PO ×2 (08:49→17:53)
[2024-05-27] MEDS: NOVOLOG FLEXPEN 4 UNITS SC ×2 (08:54→12:09)
[2024-05-27] MEDS: NOVOLOG FLEXPEN-LOW RESISTANCE 1 UNITS SC (08:55)
[2024-05-27 09:04] LABS: Glucose - Point of Care 157 mg/dl (70-99)
[2024-05-27] MEDS: LASIX 40 MG IV ×2 (09:16→16:09)
--- NOTE | 2024-05-27 11:27 | CM ---
Pricing on Farxiga 10mg daily is $20 a month through the patient's prescription plan.
Jardiance 10mg daily is $20 a month.
Patient was placed on Farxiga and qualifies for the free coupon card. I placed the coupon card in the patient's red discharge folder.
[2024-05-27] MEDS: NOVOLOG FLEXPEN-LOW RESISTANCE SC ×2 (12:08→17:53)
[2024-05-27 12:11] LABS: Glucose - Point of Care 129 mg/dl (70-99)
--- NOTE | 2024-05-27 12:30 | PTCARENOTE ---
No acute changes. Remains oob in chair and on room air: assisted to bathroom and had formed brown BM. Garcia catheter dc. Urinal provided.
[2024-05-27] MEDS: TYLENOL PO (14:46)
[2024-05-27] MEDS: NSS IV (14:46)
--- NOTE | 2024-05-27 15:30 | PTCARENOTE ---
No acute changes. Assisted patient back to bed after voided on toilet moderate amount of clear yellow urine. Right IJ cordis catheter sutures removed and cordis catheter removed: sterile vasogauze plus dsd over same. Temp epicardial v wire
disconnected from medtronic box and insulated. NSR
[2024-05-27] MEDS: KCL 20 MEQ PO (16:10)
--- NOTE | 2024-05-27 16:30 | PTCARENOTE ---
No acute changes: assisted oob to chair. Vitals stable. NSR. Improving with transitioning from bed to oob.
[2024-05-27 17:53] LABS: Glucose - Point of Care 134 mg/dl (70-99)
--- NOTE | 2024-05-27 20:00 | SUR.PHASEI ---
Received pt from [facility]. Pt resting comfortably in chair, at bedside. pt is AAOx4, denies pain. NSR on monitor, VSS. heart sounds audible, radial and DP pulses palpable,+2 UVALDO, temp epicardial V-wires insulated. crackles auscultated in
posterior lower lobes, spo2 96% on RA, home CPAP at night. +BS x 4 quadrants, abdomen soft non tender, round/obse. pt voiding clear yellow urine without difficulty. surgical sites maintained. PIV maintained. possible d/c 05/28. call galeano within
reach. will continue to monitor.
[2024-05-27 21:14] LABS: Glucose - Point of Care 171 mg/dl (70-99)
[2024-05-28] VITALS (12 sets, daily range): BP systolic 102–156; BP diastolic 62–82; PULSE 84; O2SAT 98; BMI 43.1
--- NOTE | 2024-05-28 | PTCARENOTE ---
Pt assessment unchanged. NSR on monitor, VSS. pt wearing home CPAP without difficulty, spo2 92%. pt resting comfortably in bed, staying the night. call galeano within reach. will continue to monitor.
--- NOTE | 2024-05-28 04:00 | PTCARENOTE ---
Pt assessment unchanged. NSR on monitor. VSS. AM labs drawn and sent. call galeano within reach. will continue to monitor.
[2024-05-28 05:16] LABS: Hematocrit 26.4 % (39.0-52.0); Hemoglobin 8.3 g/dL (13.0-18.0); Mean Corp Hgb Conc. 31.4 g/dL (33.0-37.0); Mean Corpuscular Hgb 19.4 pg (27.0-31.0); Mean Corpuscular Volume 61.7 fL (80.0-94.0); Platelet Count 158 10^3/uL (130-400); Red Blood Cell Count 4.28 10^6/uL (4.70-6.10); Red Cell Dist. Width 15.1 % (11.5-14.5); White Blood Cell Count 6.4 10^3/uL (4.8-10.8)
[2024-05-28 05:20] LABS: Blood Urea Nitrogen 32 mg/dl (9-20); Carbon Dioxide 27 mmol/L (22-30); Chloride 101 mmol/L (98-107); Estimated Creatinine Clearance 67 ml/min; Glucose 125 mg/dl (70-99); Magnesium 2.1 mg/dl (1.6-2.3); Potassium 3.9 mmol/L (3.5-5.1); Sodium 140 mmol/L (135-145); eGFR 51.35
--- NOTE | 2024-05-28 06:34 | W.PN.CT ---
Addendum entered and electronically signed by Yasir Petersen MD 05/28/24 08:25:
I saw and examined the patient.
The PA's note was reviewed and I agree with the note.
Comment:
Postop day #4 status post AVR (#27 Inspiris)
Doing well overall, patient with new onset of bloody urine this morning ? (etiology unclear)
Continue to monitor urine output/voids, Garcia was removed yesterday. Creatinine 1.5 today.
Continue aspirin, amnio, beta-cynthia, colchicine, Flomax, Lasix
Out of bed I-S ambulate
If hematuria is persistent will consult urology
Discharge planning for potentially tomorrow/later today
Original Note:
Today's Communication / Plan
-
-pod #4
-no issues overnight
-labs are pending
-follow Cr-1.5 today (1.5 on 05/27, 1.9 on 05/26 and 1.4 preop)
-diuresed with 40 iv bid Lasix on 05/27 (UO 1600)-continue
-current meds (ASA, Amio, Lopressor, Colchicine, Flomax, ISS)
-encourage IS, OOB, ambulate
Assessment / Plan
-
Assessment:
-S/P #27 Inspiris Resilia valve placed & secured w/ 15 interrupted, pledgetted valve sutures & CorKnots/AV annulus debrided circumferentially including debridement of aortomitral curtain/ventricular surface of anterior MV leaflet, by Nicola,
05/24/24, pod#4
-Severe
-Mild asc. aorta dilatation (4.2 cm)
-KERNS
-LVEF 60% preop, 65% postop per intraop MARYANN
-Mild AI/MR
-Moderate posterior MAC
-Severe dilated left atrium
-Mild scattered sessile atheroma seen in the descending aorta and distal arch
-HTN
-T2DM (A1C 6.3)
-Class 3 obesity (BMI 44.3)
-HARITHA (uses CPAP)
-GERD/hiatal hernia
-DJD
-Mild right scoliosis
-Renal calculi
-Recent TEVIN, 05/13/24
-BPH (on Flomax)
-Colon polyps
-Appendiceal mass/mucocele S/P Lap Appendectomy (03/19/24)
-S/p L TKA (2022)
-S/P R hip replacement (2021)
-S/p Tonsillectomy
-Acute postop blood loss/Anemia (stable without blood transfusion)
-Acute postop atelectasis
-Acute postop hypovolemia with subsequent hypervolemia
-Postop TEVIN
-Acute postop pericarditis on EKG (+rub)
Discussed patient care with: Nursing and Care Team
Subjective
Procedure
S/P #27 Inspiris Resilia valve placed & secured w/ 15 interrupted, pledgetted valve sutures & CorKnots/AV annulus debrided circumferentially including debridement of aortomitral curtain/ventricular surface of anterior MV leaflet, by Nicola, 05/24/24
-
Date of Service: May 28, 2024
Objective Data
-
PT 16.9 Sec (11.4-14.6) H 05/24/24 13:28
INR 1.40 05/24/24 13:28
APTT 31.6 Sec (23.4-35.0) 05/24/24 13:28
Vital Signs
Vital Signs
Temp Pulse Resp BP Pulse Ox
99.1 F 71 18 127/74 94
05/28/24 00:00 05/28/24 00:04 05/28/24 00:00 05/28/24 00:04 05/28/24 00:04
CT Intake/Output/Weight
05/27/24 05/27/24 05/28/24
06:59 18:59 06:59
Intake Total 130 / 261.6 1140 / 1140
Output Total 700 / 1875 1600 / 1600
Balance -570 / -1613.4 -460 / -460
SaO2: 94
Physical Exam
-
General: Awake and AOx3
Cardiovascular: Regular rate & rhythm, No Murmurs and Rub
Respiratory: Decreased Breath Sounds
Sternum: Stable
Incision: Clean, Dry and Dressing Intact
Extremities: Edema +2 (improving per )
Data Reviewed
-
Lab Results: Results Reviewed
Medications: Active Meds Reviewed
Chest X-Ray: Report Reviewed and Image Reviewed
ECG: Report Reviewed and Image Reviewed
[2024-05-28] MEDS: TYLENOL 1000 MG PO ×3 (06:41→21:23)
--- NOTE | 2024-05-28 07:00 | PTCARENOTE ---
Pt voided 500mls of bloody urine. Pt has been voiding clear yellow urine without difficulty until now. CVPA and on coming RN notified.
--- NOTE | 2024-05-28 07:34 | PN.DE.MGMTRT ---
Insulin Management
- -
: Diabetes Management F/U:
Patient admitted 05/24 for AVR. PMH: CAD, HTN, HLD, HARITHA, Obesity, Nephrolithiasis, GERD, Colon polyp, renal insufficiency and Diabetes, who was noted to have significant and underwent AVR. Diabetes mgt consulted for assistance with transitioning
pt off insulin infusion on 05/26/2024.
States he was taking metformin for prediabetes. He does not monitor his blood sugars but takes his meds daily. Current A1C 6.3%, Cr 1.9 (1.3 on admission), eGFR 38.66. Per medical records patient was diagnosed with type 2 diabetes 2018 by primary
doctor.
Transitioned off glycemic protocol 05/26 with Lantus 15 units and 4 units NovoLog AC with low corrective.
Pt awake, A/O x3, sitting up in chair, pleasant, offers no complaints, able to discuss diabetes mgt. at bedside and supportive.
AC NovoLog stopped on 05/27. Farxiga 10mg daily was started- cost is $20/month, pt is agreeable. Metformin remains on hold 2/2 TEVIN, Cr 1.4
Glucose stable and in range, premeal 129 to 157, fasting 125 this AM.
Will make no changes to current regimen: Farxiga 10mg daily and low corrective insulin with meals.
Will resume Metformin when Cr at baseline.
Full instruction on benefits of Farxiga and importance of hydration. Provided Contour Next meter and demonstrated with good return demonstration. Patient to test BID in pattern provided in diabetes education booklet. Patient verbalized
understanding. RX for Farxiga and test strips and lancets in ambulatory orders.
Discussed with pt's Nurse
Diabetes History
- -
Type of Diabetes: 2
Pre-Admission Diabetes Regimen
05/28/24
04:37
Creatinine 1.5 H
Lab Results
Hemoglobin A1c 6.3 % (4.0-5.6) H 05/13/24 12:41
Insulin Pump Settings
IP Diabetes Regimen
05/27/24 05/27/24 05/27/24
08:52 12:07 17:52
Glucose
POC Glucose 157 H 129 H 134 H
05/27/24 05/28/24
21:12 04:37
Glucose 125 H
POC Glucose 171 H
Meal type: Breakfast
Amount consumed: 100%
Patient Education
[2024-05-28 07:44] LABS: Glucose - Point of Care 136 mg/dl (70-99)
[2024-05-28] MEDS: NOVOLOG FLEXPEN-LOW RESISTANCE SC ×2 (07:54→17:20)
[2024-05-28] MEDS: LASIX 40 MG IV (08:42)
[2024-05-28] MEDS: LOPRESSOR 12.5 MG PO ×2 (08:42→19:59)
[2024-05-28] MEDS: PACERONE 200 MG PO ×3 (08:43→21:23)
[2024-05-28] MEDS: FARXIGA 10 MG PO (08:43)
[2024-05-28] MEDS: MAGNESIUM OXIDE 500 MG PO ×2 (08:43→19:59)
[2024-05-28] MEDS: SENOKOT-S 1 TABLET PO ×2 (08:43→19:59)
[2024-05-28] MEDS: LOW STRENGTH ASPIRIN 81 MG PO (08:44)
[2024-05-28] MEDS: PROTONIX 40 MG PO (08:44)
[2024-05-28] MEDS: NEURONTIN 100 MG PO ×3 (08:44→21:23)
[2024-05-28] MEDS: COLCHICINE 0.3 MG PO (08:44)
[2024-05-28] MEDS: FLOMAX 0.4 MG PO (08:44)
[2024-05-28] MEDS: LIDOCAINE 4% PATCH TOPICAL (08:51)
[2024-05-28] MEDS: NON-FORMULARY ITEM 1 MEQ PO (09:31)
[2024-05-28] MEDS: BACTROBAN 2% OINTMENT 1 APPLIC NASAL (09:32)
--- NOTE | 2024-05-28 10:15 | W.PN.CD ---
Today's Communication / Plan
-
ok for discharge from cardiac perspective
hematuria w/u as per surgical service
follow up with typical Cards: Jessica
Impression / Plan
-
Background: 63M with HTN, NIDDM, HARITHA, and severe aortic stenosis who presents for SAVR. Normal coronaries
Network Support: Dr. Lopez
Severe aortic stenosis S/P #[address] Petersen on 05/24/2024
-Pre LVEF 60% without WMA, unchanged post
-MARYANN (postop findings): good LV/RV, mild LVOT gradient, AVR good: 18/9mmHg post without AI
post op ECG raised some question of pericarditis .
-no sx
-on low dose colchicine
-would keep a close eye on renal function with colchicine use
CKD, improving
Hematuria:
-as per CT
-?traumatic amaya
HTN
NIDDM, Hgba1c 6.3%, per primary
HARITHA
Subjective:
Feels well. blood in urine new today, had similar event after ortho surgery
Physical Exam
Vital Signs/Labs
Vital Signs
Temp Pulse Resp BP Pulse Ox
98.4 F 84 15 156/70 96
05/28/24 07:44 05/28/24 08:43 05/28/24 07:44 05/28/24 08:43 05/28/24 08:20
05/27/24 05/28/24 05/29/24
06:59 06:59 06:59
Actual Weight 134.8 kg 132.3 kg
05/28/24 04:37
05/28/24 04:37
PT 16.9 Sec (11.4-14.6) H 05/24/24 13:28
INR 1.40 05/24/24 13:28
APTT 31.6 Sec (23.4-35.0) 05/24/24 13:28
Magnesium 2.1 mg/dl (1.6-2.3) 05/28/24 04:37
Physical Exam
Constitutional: No acute distress
EENT: Anicteric
Cardiovascular: Rhythm & rate is regular, Pedal edema is absent, JVD pressure is normal, Systolic murmur absent and Diastolic murmur absent
Neuro/Psych: AO x 3
Data Reviewed
-
Date of Service: May 28, 2024
Medical Decision Making: Review of Case with other Provider (d/w CT surg karlie Berg looks good outside of hematuria)
--- NOTE | 2024-05-28 10:24 | PTCARENOTE ---
Patient received from time recorder resting oob in chair, AAO X 3, states pain controlled at this time. NSR via cm, SaO2 @ 96% on RA. Epicardial V-wire, insulated to chest wall. All procedural sites stable. Patient voided, bloody w/clots noted - PA
Wanda updated. Patient and spouse updated to plan of care for the day, in agreement. See work list for full assessment and interventions performed.
--- NOTE | 2024-05-28 11:00 | CONS.URO ---
Consultation
-
Performing Provider: Peffer
Reason for Consultation: Hematuria
Medical History
History of Present Illness
63M admitted s/p AVR
He has prior urologic hx of kidney stones and is followed at [facility]
Prior hx of gross hematuria following orthopedic operations which self resolved
Garcia was removed yesterday but today developed some hematuria with small clots and some blood dripping per urethral meatus
Denies dysuria
No difficulty voiding after passing a small clot
Past Medical History
Past Medical History: CAD and Other (Aortic stenosis, Kidney stone, HARITHA)
Past Surgical History: Appendectomy and Orthopedic
Social History
Tobacco: Non-smoker
Family History
Family History: Reviewed & Not Pertinent
Allergies/Home Medications
Allergies
Allergy/AdvReac Type Severity Reaction Status Date / Time
lisinopril AdvReac Cough Verified 05/25/24 16:40
Home Medications
�Medication �Instructions �Recorded �Confirmed �Type
pantoprazole 40 mg tablet,delayed 40 mg PO DAILY Gastrointestinal 09/23/20 05/24/24 History
release issue
potassium citrate 15 mEq (1,620 15 meq PO BID Supplement 09/23/20 05/24/24 History
mg) tablet,extended release
(Urocit-K 15)
metformin 500 mg tablet 500 mg PO BID Diabetes 03/17/24 05/24/24 History
metoprolol succinate 25 mg 12.5 mg PO DAILY Blood Pressure 03/17/24 05/24/24 History
tablet,extended release 24 hr
nifedipine 30 mg tablet,extended 30 mg PO DAILY Heart 03/17/24 05/24/24 History
release 24 hr Disease/Condition
tamsulosin 0.4 mg capsule 0.4 mg PO DAILY Urinary Issue 03/17/24 05/24/24 History
acetaminophen 500 mg tablet 1,000 mg (2 x 500 mg) PO Q6HPRN 03/19/24 05/24/24 Rx
(Tylenol Extra Strength) PRN mild pain #1 tab
oxycodone 5 mg tablet 5 mg PO Q4HPRN PRN 03/19/24 05/24/24 Rx
breakthrough/severe pain #7 tabs
aspirin 81 mg tablet,delayed 81 mg PO DAILY Blood Clot 05/25/24 05/24/24 History
release Prevention/Tx
blood sugar diagnostic (HELM BootsTouch ##100 05/27/24 Rx
Verio test strips)
blood-glucose meter (OneTouch #1 ea 05/27/24 Rx
Verio Flex Meter)
dapagliflozin propanediol 10 mg 10 mg PO DAILY #30 tabs 05/27/24 Rx
tablet (Farxiga)
lancets 33 gauge (HELM BootsTouch Delica #100 ea 05/27/24 Rx
Plus Lancet)
Physical Exam
Vital Signs
Vital Signs
Temp Pulse Resp BP Pulse Ox
98.4 F 84 15 156/70 96
05/28/24 07:44 05/28/24 08:43 05/28/24 07:44 05/28/24 08:43 05/28/24 08:20
Lab / Testing Results
Laboratory Results
05/28/24 04:37
05/28/24 04:37
Physical Exam
General: Well Developed, Well Nourished and No Apparent Distress
Respiratory: Clear and Non Labored Respirations
GI: Soft and Non Tender
Neuro: AO x 3
Psych: Calm and Intact Judgement
Assessment / Plan
-
63M with gross hematuria following AVR 1 day post catheter removal
- Blood in urine plus bleeding per meatus suggests prostate or urethra bleeding, possibly from catheter trauma
- recommend observation today - continue hydration as permitted
- If large clots or difficulty voiding, will place catheter and start CBI
- If hematuria is improving and clots resolved, okay for discharge today from urology standpoint
Outpatient follow up with his urologist to consider cystoscopy
[2024-05-28] MEDS: NSS IV (11:41)
--- NOTE | 2024-05-28 11:42 | PTCARENOTE ---
Pt received from Olive RN at 1000; AAOx3, Responds to Spontaneous response to RN and follows commands; NSR rhythm on monitor; Epicardial V-wire present and insulated; +1 DP and +2 radial pulses; +1 edema present in B/L LE; Lungs diminished at
bases - SpO2 97-98% on RA; IS 2250 ml; Normoactive BS - last reported BM 05/27 by patient; Patient urinating bloody urine with blood clots for previous RN - Urology consulted and patient now urinating clear, yellow urine; Surgical sites intact; PIVx1
#18 R Hand; 2 view CXR completed; Patient successfully completed steps with RN and cardiac rehab; Patient denies any pain at this time; See nursing documentation for further details.
[2024-05-28] MEDS: NOVOLOG FLEXPEN-LOW RESISTANCE 1 UNITS SC (12:02)
[2024-05-28 12:05] LABS: Glucose - Point of Care 162 mg/dl (70-99)
--- NOTE | 2024-05-28 13:55 | PTCARENOTE ---
Patient voided another time in urinal - kari red blood with a couple small blood clots; Patient also dripping blood for several minutes from penis after finished urinating - penis checked for a visible cut but no signs found; BIANKA Nova notified
and aware - saw patient at bedside and assessed; Awaiting urology decision
[2024-05-28 17:21] LABS: Glucose - Point of Care 136 mg/dl (70-99)
[2024-05-28] MEDS: NON-FORMULARY ITEM 15 MEQ PO (17:21)
--- NOTE | 2024-05-28 17:34 | PTCARENOTE ---
Patient's urine slightly less bloody with 2 small blood clots; Patient states earlier was more painful when urinating as compared to now; Continuing to monitor hematuria
--- NOTE | 2024-05-28 18:09 | W.PN.UPDATE ---
Update Note
Progress Note Update
some persistent but intermittent hematuria today
No obstruction, minimal clots
If stable tomorrow will be okay for discharge
Will send UA to rule out infectious component but no significant UTI symptoms
--- NOTE | 2024-05-28 18:34 | PTCARENOTE ---
Dr. Romero at bedside and updated on patient's urine appearance throughout the day - Urine analysis ordered; Will continue to monitor urine for blood clots and hematuria.
--- NOTE | 2024-05-28 20:00 | PTCARENOTE ---
Received pt from [facility]. pt resting comfortable in chair with at bedside. pt is AAOx4, denies pain. NSR on monitor, VSS. heart sounds audible, radial and DP pulses palpable, +1 UVALDO, temp epicardial V wires insulated. b/l posterior lower lobe
crackles, spo2 96% on RA, home CPAP at night. +BS x4 quadrants, abdomen soft, round/obese, non tender. pt voiding bloody urine, urology consulted, CT care team aware, will continue to monitor. surgical site maintained. PIV maintained. call galeano
within reach. will continue to monitor.
[2024-05-28 21:27] LABS: Glucose - Point of Care 157 mg/dl (70-99)
[2024-05-28 22:00] LABS: Urine Albumin Trace (Neg - Trace); Urine Bilirubin Negative (Negative); Urine Glucose 3+ (Negative); Urine Ketone Negative (Negative); Urine Leukocyte Negative (Negative); Urine Nitrite Negative (Negative); Urine Occult Blood 4+ (Negative); Urine Urobilinogen Negative (Neg - 1+)
--- NOTE | 2024-05-28 22:00 | PTCARENOTE ---
Pt was able to void 350mls of yellow urine, scant amount of small blood clots noted. pt reported no pain and no difficulty urination. pt had hematuria earlier in the day. care team aware. will continue to monitor.
[2024-05-28 22:01] LABS: Urine Character Slightly Cloudy (Clear); Urine Color Yellow
[2024-05-28 22:03] LABS: Urine Red Blood Cell >100 /HPF (0-2); Urine Uric Acid Crystals Present
[2024-05-29] VITALS (8 sets, daily range): BP systolic 112–138; BP diastolic 60–79; PULSE 84; O2SAT 96–98; BMI 43.0
--- NOTE | 2024-05-29 | PTCARENOTE ---
pt resting comfortably in bed. pt's is staying the night. NSR on monitor. VSS. Pt's last void was yellow, small clots present, CVPA made aware. UA sent to lab. call galeano within reach. will continue to monitor.
--- NOTE | 2024-05-29 02:18 | W.PN.CT ---
Addendum entered and electronically signed by Yasir Petersen MD 05/29/24 08:21:
I saw and examined the patient.
The PA's note was reviewed and I agree with the note.
Comment:
Postop day #5 status post AVR
From a cardiac surgical standpoint, patient was appropriate for discharge yesterday, however, this was delayed secondary to kari hematuria. Urology was consulted. Patient's urine has cleared times last 2 voids. Creatinine back to baseline at
1.4. Okay for discharge today.
Aspirin, beta-cynthia, amiodarone, colchicine
Out of bed, I-S, ambulate
Discharge home today
Original Note:
Today's Communication / Plan
-
-pod #5
-no issues overnight, wants to go home
-intermittent hematuria yesterday. Appreciate Urology input. Hematuria improved (voided twice overnight yellow urine). UA without UTI, + blood, + uric acid crystals.
-Uric acid wnl 5.5. He is already on Colchicine for pericarditis (wouldn't increase dose d/t interaction with Amio)
-diuresed well with 40 iv Lasix on 05/28 (UO 2150 in 12 hrs). Wt is 3 lbs below preop wt
-IS [id number]- continue
-possible d/c home is no further hematuria
Assessment / Plan
-
Assessment:
-S/P #27 Inspiris Resilia valve placed & secured w/ 15 interrupted, pledgetted valve sutures & CorKnots/AV annulus debrided circumferentially including debridement of aortomitral curtain/ventricular surface of anterior MV leaflet, by Nicola,
05/24/24, pod#5
-Severe
-Mild asc. aorta dilatation (4.2 cm)
-KERNS
-LVEF 60% preop, 65% postop per intraop MARYANN
-Mild AI/MR
-Moderate posterior MAC
-Severe dilated left atrium
-Mild scattered sessile atheroma seen in the descending aorta and distal arch
-HTN
-T2DM (A1C 6.3)
-Class 3 obesity (BMI 44.3)
-HARITHA (uses CPAP)
-GERD/hiatal hernia
-DJD
-Mild right scoliosis
-Renal calculi
-Recent TEVIN, 05/13/24
-BPH (on Flomax)
-Colon polyps
-Appendiceal mass/mucocele S/P Lap Appendectomy (03/19/24)
-S/p L TKA (2022)
-S/P R hip replacement (2021)
-S/p Tonsillectomy
-Acute postop blood loss/Anemia (stable without blood transfusion)
-Acute postop atelectasis
-Acute postop hypovolemia with subsequent hypervolemia
-Postop TEVIN
-Acute postop pericarditis on EKG (+rub)
Discussed patient care with: Nursing and Care Team
Subjective
Procedure
S/P #27 Inspiris Resilia valve placed & secured w/ 15 interrupted, pledgetted valve sutures & CorKnots/AV annulus debrided circumferentially including debridement of aortomitral curtain/ventricular surface of anterior MV leaflet, by Nicola, 05/24/24
-
Date of Service: May 29, 2024
Objective Data
-
PT 16.9 Sec (11.4-14.6) H 05/24/24 13:28
INR 1.40 05/24/24 13:28
APTT 31.6 Sec (23.4-35.0) 05/24/24 13:28
Vital Signs
Vital Signs
Temp Pulse Resp BP Pulse Ox
98.4 F 72 20 112/60 94
05/29/24 00:00 05/29/24 00:00 05/29/24 00:00 05/29/24 00:00 05/29/24 00:00
CT Intake/Output/Weight
05/28/24 05/28/24 05/29/24
06:59 18:59 06:59
Intake Total 1650 / 1650
Output Total 500 / 2100 2150 / 2500 350 / 2500
Balance -500 / -960 -500 / -850 -350 / -850
SaO2: 94
Physical Exam
-
General: Awake and AOx3
Cardiovascular: Regular rate & rhythm, No Murmurs and No Rub
Respiratory: Clear
Sternum: Stable
Incision: Clean, Dry and Dressing Intact
Extremities: Edema +1
Data Reviewed
-
Lab Results: Results Reviewed
Medications: Active Meds Reviewed
Chest X-Ray: Report Reviewed and Image Reviewed
ECG: Report Reviewed and Image Reviewed
--- NOTE | 2024-05-29 04:00 | PTCARENOTE ---
Pt assessment unchanged. NSR on monitor. VSS. pt resting comfortably in bed. AM labs drawn. Pt assisted OOB to bathroom. Voided 450ml of yellow urine, no blood clots noted. pt weighed and assisted back to bed. call galeano within reach. will continue
to monitor.
[2024-05-29 05:03] LABS: Hematocrit 26.8 % (39.0-52.0); Hemoglobin 8.3 g/dL (13.0-18.0); Mean Corpuscular Volume 61.5 fL (80.0-94.0); Mean Platelet Volume 10.1 fL (7.4-10.4); Platelet Count 200 10^3/uL (130-400); Red Blood Cell Count 4.36 10^6/uL (4.70-6.10); Red Cell Dist. Width 14.8 % (11.5-14.5); White Blood Cell Count 5.9 10^3/uL (4.8-10.8)
[2024-05-29 05:18] LABS: Blood Urea Nitrogen 33 mg/dl (9-20); Calcium 8.2 mg/dl (8.4-10.2); Carbon Dioxide 29 mmol/L (22-30); Chloride 100 mmol/L (98-107); Estimated Creatinine Clearance 71 ml/min; Glucose 126 mg/dl (70-99); Magnesium 2.2 mg/dl (1.6-2.3); Potassium 3.9 mmol/L (3.5-5.1); Sodium 138 mmol/L (135-145); Uric Acid 5.5 mg/dl (3.5-8.5); eGFR 55.78
[2024-05-29] MEDS: TYLENOL PO (06:44)
--- NOTE | 2024-05-29 08:00 | PTCARENOTE ---
pt received from previous RN, oriented, OOB in chair. SR on the monitor, HR 70-80s. V wire insulated. SBP 130s. palpable pulses. pt on RA, 98% POX. lungs clear. IS encouraged. pt abdomen s/n, denies n/v. diet tolerated well. voids, clear yellow
urine. pt states had BM this am. sternal incision approximated. chest tube site c/d/i. PIV. at bedside. see worklist for VS, I&O, and assessment.
[2024-05-29] MEDS: LIDOCAINE 4% PATCH TOPICAL (08:48)
[2024-05-29 09:21] LABS: Glucose - Point of Care 133 mg/dl (70-99)
[2024-05-29] MEDS: NOVOLOG FLEXPEN-LOW RESISTANCE SC (09:21)
[2024-05-29] MEDS: PROTONIX 40 MG PO (09:21)
[2024-05-29] MEDS: FLOMAX 0.4 MG PO (09:21)
[2024-05-29] MEDS: LOW STRENGTH ASPIRIN 81 MG PO (09:22)
[2024-05-29] MEDS: PACERONE 200 MG PO (09:22)
[2024-05-29] MEDS: MAGNESIUM OXIDE 500 MG PO (09:22)
[2024-05-29] MEDS: LOPRESSOR 12.5 MG PO (09:22)
[2024-05-29] MEDS: FARXIGA 10 MG PO (09:22)
[2024-05-29] MEDS: NEURONTIN 100 MG PO (09:22)
[2024-05-29] MEDS: COLCHICINE 0.3 MG PO (09:22)
[2024-05-29] MEDS: SENOKOT-S 1 TABLET PO (09:22)
[2024-05-29] MEDS: NON-FORMULARY ITEM 15 MEQ PO (10:04)
--- NOTE | 2024-05-29 11:29 | W.DCSUMMARY ---
Discharge Summary
Discharge Data
Date of Admission: 05/24/24
Date of Discharge: 05/29/24
-
Pending Results: No
Hospital Course
Patient was admitted electively on May 24 to undergo aortic valve replacement by Dr. Yasir Petersen. Please refer to his separately dictated operative report for complete details. Postoperatively the patient was transferred to the ICU on
low-dose Levophed drip he was extubated per protocol at 1630 on postop day 0. He otherwise progressed well and expectedly.
Postoperative day #1: The patient had a mild acute kidney injury for which the Garcia catheter was maintained. Colchicine was started for presumed pericarditis based on physical exam findings of a friction rub. Beta-cynthia was started and chest
tubes were removed.
Postoperative day #2: Patient was given low-dose intravenous Lasix. Garcia was again maintained for monitoring of urine output given acute kidney injury. He was transitioned off his insulin drip and transferred to telemetry status. Metformin was
held due to ongoing acute kidney injury.
Postoperative day #3: Garcia catheter and Cordis were removed. Again, gentle diuresis was pursued. Patient continued progress well and was weaned to room air.
Postoperative day #4: Diuresis ongoing with intravenous Lasix. The patient had 2 episodes of hematuria for which urology was consulted. Ultimately the hematuria did resolve without further intervention. It was decided by urology that close
monitoring would be necessary. Should the hematuria recur Garcia catheter with bladder irrigation would be needed. 2 view chest x-ray does not show any new findings. Patient was kept overnight to observe his urine output for any gross hematuria.
Postoperative day #5: Patient's urine remains clear after voiding x 2. Patient continues to ambulate independently. He is stable on room air. Plan for home today. Discharge instructions were reviewed with the patient extensively and his
questions were answered. He understands that he may contact our service 24 hours a day should he have any questions or concerns. Metformin will be held at discharge and can be restarted on outpatient basis.
Discharge Plan
-
Patient Disposition: Home (Routine Discharge)
Discharge Diagnosis/Procedures: Status post aortic valve replacement with a 27 mm Reeder Inspiris Resilia bioprosthetic valve placed & secured w/ 15 interrupted, pledgetted valve sutures & CorKnots/aortic valve annulus debrided circumferentially
including debridement of aortomitral curtain/ventricular surface of anterior mitral valve leaflet, by Nicola, 05/24/24
-Severe aortic stenosis
-Mild ascending aorta dilatation (4.2 cm)
-Dyspnea on exertion
-Left ventricular ejection fraction 60% preop, 65% postop per intraoperative transesophageal echocardiogram
-Mild aortic insufficiency/mitral regurgitation
-Moderate posterior mitral annular calcification
-Severe dilated left atrium
-Mild scattered sessile atheroma seen in the descending aorta and distal arch
-Hypertension
-Type 2 diabetes mellitus (A1C 6.3)
-Class 3 obesity (body mass index 44.3)
-Obstructive sleep apnea (uses continuous positive airway pressure)
-Gastroesophageal reflux disease/hiatal hernia
-Degenerative joint disease
-Mild right scoliosis
-Renal calculi
-Recent acute kidney injury, 05/13/24
-Benign prostatic hyperplasia (on Flomax)
-Colon polyps
-Appendiceal mass/mucocele status post lap Appendectomy (03/19/24)
-Status post left total knee arthroplasty (2022)
-Status post right total hip arthroplasty (2021)
-Status post tonsillectomy
-Acute postoperative blood loss/Anemia (stable without blood transfusion)
-Acute postoperative atelectasis
-Acute postoperative hypovolemia with subsequent hypervolemia
-Postoperative acute kidney injury
-Acute postoperative pericarditis on electrocardiogram (+rub)
Diet: Low Fat and Low Cholesterol
Activity: No strenuous activity
Driving Restrictions: Not until seen by your Dr
Bathing Restrictions: OK to Shower
Specialty Instructions: Weigh Daily- Call MD for wt gain/loss 3 lbs overnight/5 lbs in 1 week
Activity Restrictions/Additional Instructions:
ACTIVITY:
-No strenuous activity: no heavy lifting, pushing, pulling anything over 15 pounds for one month
-continue to use stairs as tolerated
DRIVING RESTRICTIONS:
-No driving for one month or until approved by your surgeon
WOUND CARE:
-Shower daily. Use soap & water.
-No lotions, creams or powders on incision area.
DIET:
-continue a low fat/low cholesterol diet.
-IF you are diabetic, continue carb controlled diet.
CARDIAC REHAB:
-Please make appointment to start in 5-6 weeks with your local hospital program. (See Cardiac Rehabilitation Discharge Booklet).
SPECIALTY INSTRUCTIONS:
-Weigh yourself daily. Call your physician for any weight gain/loss of 3 lbs overnight or 5 lbs in one week.
-REPORT any clicking noise or uneven appearance of your sternum to your surgeon immediately.
-If you smoke, you are instructed to quit. The [place] smoking hotline phone number is [phone]
Referrals:
CT Transitional Care Nurse [Outside] (The Cardiothoracic Transitional Care Nurse will call you to set up a visit in 1-2 days.)
[facility] [address] [facility] [Outside] - 06/24/24 8:30 am
(Cardiac Rehab Orientation appointment is on ___Jun 0830 AM
The Cardiac Rehab gym is located on the first floor of the [facility].)
Gregorio Roland MD [Active] - (Last seen 2020-HARITHA/CPAP compliance-Dr. Alberts or nurse practitioner)
Pineda Faustin DO [Family Provider] -
Pineda Lopez DO [Non-Admitting Privileges] - 07/12/24 9:00 am
Yasir Petersen MD [Active] - 06/22/24 1:30 pm
Prescriptions:
New
(DME) OneTouch Verio test strips Strip
Qty: 100 0RF
Rx Instructions:
As Directed
dapagliflozin propanediol [Farxiga] 10 mg Tablet
10 mg PO DAILY Qty: 30 0RF
(DME) lancets [OneTouch Delica Plus Lancet] 33 gauge Misc
Qty: 100 0RF
Rx Instructions:
As Directed
(DME) blood-glucose meter [CamStentTouch Verio Flex meter] Misc
Qty: 1 0RF
Rx Instructions:
As Directed
colchicine 0.6 mg Tablet
0.3 mg PO DAILY Qty: 30 0RF
metoprolol tartrate 25 mg Tablet
12.5 mg PO Q12 Qty: 60 2RF
Continued
pantoprazole 40 MG tablet,delayed release (DR/EC)
40 mg PO DAILY
potassium citrate [Urocit-K 15] 15 MEQ tablet extended release
15 meq PO BID
tamsulosin 0.4 mg Capsule
0.4 mg PO DAILY
acetaminophen [Tylenol Extra Strength] 500 mg tablet
1,000 mg PO Q6HPRN PRN (Reason: mild pain) Qty: 1 0RF
oxycodone 5 mg tablet
5 mg PO Q4HPRN PRN (Reason: breakthrough/severe pain) Qty: 7 0RF
Rx Instructions:
pt states it has been mnths
aspirin 81 MG tablet,delayed release (DR/EC)
81 mg PO DAILY
Discontinued
nifedipine 30 mg Tablet Extended Release 24hr
30 mg PO DAILY
metformin 500 mg Tablet
500 mg PO BID
metoprolol succinate 25 mg Tablet Extended Release 24 Hr
12.5 mg PO DAILY
Discharge Orders:
Discharge Patient (As Directed); Ordered 05/29/24
Ordered By: Antwon Goyal
Discharge Date and Time
Print Language: CROATIAN
--- NOTE | 2024-05-29 12:50 | PTCARENOTE ---
pt VSS, pt discharged home w/ . discharge instructions reviewed w/ patient and , questions answered. home meds reviewed. home meds returned to patient. IV and tele dc'd. pt showered independently. dressed self. pt left w/ all belongings via
wheelchair w/ staff escort.
--- NOTE | 2024-05-29 15:16 | W.PN.URO.CBU ---
Today's Communication / Plan
-
Okay for discharge
Assessment / Plan
-
63M with gross hematuria likely due to catheter trauma
Hematuria resolved with observation
Stable for discharge from urology standpoint
Recommend outpatient follow up with me or prior urologist to review
Diagnosis
-
Date of Service: May 29, 2024
-
Patient Diagnosis:
Hematuria
Post Op Day:
Subjective
-
Hematuria resolved
No blood overnight
UA benign
Objective
-
Vital Signs
Temp Pulse Resp BP Pulse Ox
98.9 F 81 18 132/64 94
05/29/24 11:49 05/29/24 12:00 05/29/24 11:49 05/29/24 11:50 05/29/24 12:00
Intake and Output
05/28/24 05/29/24 05/30/24
06:59 06:59 06:59
Intake Total 1140 / 1140 1650 / 1650 100 / 100
Output Total 2100 / 2100 2950 / 2950 700 / 700
Balance -960 / -960 -1300 / -1300 -600 / -600
Intake:
Oral fluids 1050 / 1050 1650 / 1650 100 / 100
IV fluids (Total) 90 / 90
Cordis 90 / 90
Output:
Urine, Garcia 1600 / 1600
Urine, Voided 500 / 500 2950 / 2950 700 / 700
Other:
Number of approximated MODERATE 1
amounts of urine
Laboratory Results
05/29/24 04:34
05/29/24 04:34
Physical Exam
-
General - well developed, well nourished, no acute distress
== END 2024-05-29 12:40 | disposition home or self-care (01) | DRG 220 ==
LOC: CVICU 05:12
PROVIDERS: Anesthesiology; Physician Assistant Medical; ADMITTING PHYSICIAN Thoracic Surgery (Cardiothoracic Vascular Surgery); CONSULT PHYSICIAN Internal Medicine Critical Care Medicine; CONSULT PHYSICIAN Urology; FAMILY PHYSICIAN Family Medicine
PROC: B24BZZ4 Ultrasonography of Heart with Aorta, Transesophageal (ICD-10-PCS; 2024-05-24)
PROC: 5A09357 Assistance with Respiratory Ventilation, Less than 24 Consecutive Hours, Continuous Positive Airway Pressure (ICD-10-PCS; 2024-05-24)
PROC: 02RF08Z Replacement of Aortic Valve with Zooplastic Tissue, Open Approach (ICD-10-PCS; 2024-05-24)
DX: I35.0 Nonrheumatic aortic (valve) stenosis (principal); D62 Acute posthemorrhagic anemia; Z68.41 Body mass index [BMI] 40.0-44.9, adult; J98.11 Atelectasis; I30.9 Acute pericarditis, unspecified; D50.9 Iron deficiency anemia, unspecified; I10 Essential (primary) hypertension; N40.0 Benign prostatic hyperplasia without lower urinary tract symptoms; N99.0 Postprocedural (acute) (chronic) kidney failure; E86.1 Hypovolemia; E87.70 Fluid overload, unspecified; Y83.2 Surgical operation with anastomosis, bypass or graft as the cause of abnormal reaction of the patient, or of later complication, without mention of misadventure at the time of the procedure; E66.01 Morbid (severe) obesity due to excess calories; I25.10 Atherosclerotic heart disease of native coronary artery without angina pectoris; E11.65 Type 2 diabetes mellitus with hyperglycemia; R31.0 Gross hematuria; I77.810 Thoracic aortic ectasia; K44.9 Diaphragmatic hernia without obstruction or gangrene; M41.9 Scoliosis, unspecified; I34.0 Nonrheumatic mitral (valve) insufficiency; I70.0 Atherosclerosis of aorta; G47.33 Obstructive sleep apnea (adult) (pediatric); E78.5 Hyperlipidemia, unspecified; G89.29 Other chronic pain; K21.9 Gastro-esophageal reflux disease without esophagitis; Z79.82 Long term (current) use of aspirin; Z79.84 Long term (current) use of oral hypoglycemic drugs; Z79.899 Other long term (current) drug therapy; Z79.891 Long term (current) use of opiate analgesic; Z82.49 Family history of ischemic heart disease and other diseases of the circulatory system; Z85.09 Personal history of malignant neoplasm of other digestive organs; Z87.442 Personal history of urinary calculi; Z90.49 Acquired absence of other specified parts of digestive tract
CPT/HCPCS: 88305; 88311; 36415; 71045; 71046; 80048; 80053; 81003; 81015; 82248; 82330; 82565; 82805; 82810; 82947; 82962; 83036; 83735; 84132; 84302; 84520; 84550; 85014; 85018; 85025; 85027; 85049; 85610; 85730; 86850; 86900; 86901; 86920; 87070; 93005; 93312; 93320; 93325; 93880; 94002; 94010

== ENCOUNTER 2024-06-28 08:50 | Outpatient (RCR) | payer OTHER, SELFPAY ==
[2024-07-05 11:08] LABS: Glucose - Point of Care 107 mg/dl (70-99)
[2024-07-05 11:08] LABS: Glucose - Point of Care 137 mg/dl (70-99)
[2024-07-05 11:08] LABS: Glucose - Point of Care 130 mg/dl (70-99)
== END 2024-06-29 15:07 | disposition other institution (70) ==
LOC: CRHB 08:50
PROVIDERS: ATTENDING PHYSICIAN Internal Medicine Cardiovascular Disease
DX: Z95.2 Presence of prosthetic heart valve (principal)
CPT/HCPCS: 82962; 93798

== ENCOUNTER 2024-07-07 08:47 | Outpatient (RCR) | payer OTHER, SELFPAY ==
[2024-07-05 11:08] LABS: Glucose - Point of Care 126 mg/dl (70-99)
[2024-07-07 14:46] LABS: Glucose - Point of Care 119 mg/dl (70-99)
[2024-07-07 14:46] LABS: Glucose - Point of Care 124 mg/dl (70-99)
== END 2024-07-07 23:59 | disposition home or self-care (01) ==
LOC: CRHB 08:47
PROVIDERS: ATTENDING PHYSICIAN Internal Medicine Cardiovascular Disease; FAMILY PHYSICIAN Family Medicine
DX: Z95.2 Presence of prosthetic heart valve (principal)
CPT/HCPCS: 82962; 93798

== ENCOUNTER 2024-08-06 08:40 | Outpatient (RCR) | payer OTHER, SELFPAY ==
[2024-07-09 06:26] LABS: Glucose - Point of Care 144 mg/dl (70-99)
[2024-07-09 07:21] LABS: Glucose - Point of Care 132 mg/dl (70-99)
[2024-07-12 06:29] LABS: Glucose - Point of Care 120 mg/dl (70-99)
[2024-07-12 07:21] LABS: Glucose - Point of Care 119 mg/dl (70-99)
== END 2024-08-06 23:59 | disposition home or self-care (01) ==
LOC: CRHB 08:40
PROVIDERS: ATTENDING PHYSICIAN Internal Medicine Cardiovascular Disease; FAMILY PHYSICIAN Family Medicine
DX: I35.0 Nonrheumatic aortic (valve) stenosis (principal); Z95.2 Presence of prosthetic heart valve
CPT/HCPCS: 82962; 93798

== ENCOUNTER 2024-09-06 08:44 | Outpatient (RCR) | payer OTHER, SELFPAY | END 2024-09-06 23:59 | disposition home or self-care (01) | LOC: CRHB 08:44 | PROVIDERS: ATTENDING PHYSICIAN Internal Medicine Cardiovascular Disease; FAMILY PHYSICIAN Family Medicine | DX: Z95.2 Presence of prosthetic heart valve (principal) | CPT/HCPCS: 93798 ==

== ENCOUNTER 2024-09-22 08:39 | Outpatient (RCR) | payer OTHER, SELFPAY | END 2024-09-22 23:59 | disposition home or self-care (01) | LOC: CRHB 08:39 | PROVIDERS: ATTENDING PHYSICIAN Internal Medicine Cardiovascular Disease; FAMILY PHYSICIAN Family Medicine | DX: Z95.2 Presence of prosthetic heart valve (principal) | CPT/HCPCS: 93798; G0422 ==

== ENCOUNTER → 2024-12-20 08:16 | Outpatient (REF) | payer OTHER, SELFPAY | LOC: HWRAD 08:16 | PROVIDERS: ATTENDING PHYSICIAN Family Medicine | DX: T14.8XXA Other injury of unspecified body region, initial encounter (principal) | CPT/HCPCS: 73130 ==